=== PATIENT | male | born 1990 | race Caucasian/White ===

== ENCOUNTER 2020-07-16 16:21 | Emergency (ER) | payer MEDICAID, SELFPAY ==
--- NOTE | 2020-07-16 17:53 | HMH.EDUTC ---
[facility] [place] Disposition Clinical Impression: Viral syndrome, Bronchitis Disposition: Home, Self-Care Condition on Discharge: Good Instructions: Acute Bronchitis, DI for Acute Bronchitis, Preventing the Spread of Coronavirus Discharge Instructions Additional Instructions: Drink plenty of fluids. Take tylenol or ibuprofen for pain or fever. Take the medications as directed. Follow up with your regular doctor. GO TO THE ER FOR ANY WORSENING SYMPTOMS FOLLOW THE DIRECTIONS ON THE COVID-19 HAND OUT THAT WE GAVE YOU REGARDING SELF-ISOLATION UNTIL YOU KNOW YOUR COVID-19 RESULTS Prescriptions: Brompheniramine/Pseudoephed/Dm [Bromfed Dm Cough Syrup] 5 ml PO Q6HP PRN #240 syrup PRN Reason: Cough Transmission Status: Received by [facility] Azithromycin [Z-Ernesto 250mg Tab*] 250 mg PO UD DOSE PK #6 tab Transmission Status: Received by [facility] Referrals: PCP,No [Primary Care Provider] - Forms: Work/School Release Time of Disposition: 18:15 Medical Decision Making - Medical Records Medical records reviewed: No: I reviewed the patient's medical records. - Kan Inquiry Pt receiving controlled substance: No Vital Signs: 07/16/20 17:58 07/16/20 18:22 Temperature 98.6 F 98.6 F Temperature Source Oral Pulse Rate 72 Pulse Rate [Right Brachial] 72 Respiratory Rate 20 20 Blood Pressure 141/94 H Blood Pressure [Right Arm] 141/94 H Blood Pressure Mean [Right Arm] 109 Blood Pressure Source [Right Arm] Automatic Cuff Blood Pressure Position [Right Arm] Sitting 02 Sat by Pulse Oximetry 97 Oxygen Delivery Method Room Air - Lab Data Lab results reviewed: Yes: I reviewed the patient's lab results. [facility] [place] HPI - General Stated complaint: covid symptoms Time Seen by Provider: 07/16/20 17:53 - History of Present Illness Provider Complaint: He c/o 3 days of chest congestion, cough and feeling bad. He denies any known exposure to COVID-19. - Related Data Previous Rx's Medication Instructions Recorded Azithromycin [Z-Ernesto 250mg Tab*] 250 mg PO UD DOSE PK #6 tab 01/31/20 Brompheniramine/Pseudoephed/Dm 5 ml PO Q6HP PRN #240 syrup 01/31/20 [Bromfed Dm Cough Syrup] predniSONE [Deltasone 10mg tablet] 10 mg PO BID 3 Days #6 tab 01/31/20 Azithromycin [Z-Ernesto 250mg Tab*] 250 mg PO UD DOSE PK #6 tab 07/16/20 Brompheniramine/Pseudoephed/Dm 5 ml PO Q6HP PRN #240 syrup 07/16/20 [Bromfed Dm Cough Syrup] Allergies Allergy/AdvReac Type Severity Reaction Status Date / Time No Known Allergies Allergy Verified 02/06/19 18:16 [facility] History - Hepatitis A Screen Attestation statement:: This patient has been screened for Hepatitis A risk factors. I have reviewed the patient's past medical history: Yes Medical History: Denies:: Cancer, Diabetes Mellitus Type 1, Diabetes Mellitus Type 2, Hypertension, MRSA Other Surgeries: Yes: No Previous Surgery Amputation: No Fractures: No - Social History Smoking Status: Current every day smoker Tobacco Type: cigarettes # Packs/Day (cigarettes): 1 Alcohol Intake: never Occupational Status: other ROS Obtained: No All systems reviewed & no additional complaints - Constitutional Constitutional: Reports chills, Reports fever(s), Reports poor appetite, Reports malaise - Eyes Eyes: Denies eye discharge - ENT Ears, Nose, Mouth, and Throat: Denies dizziness, Denies otalgia, Reports sore throat - Cardiovascular Cardiovascular: Denies chest pain - Respiratory Respiratory: Yes chest congestion, Yes cough Physical Exam - General General appearance: alert, in no apparent distress - Head Head exam: atraumatic, normocephalic, normal inspection - Eye Eye exam: Present: normal appearance, PERRL, EOMI - ENT ENT exam: Present: normal exam, normal oropharynx, mucous membranes moist, TM's normal bilaterally, normal external ear exam - Neck Neck exam: Present: normal inspection, full ROM, trachea midline. Absent: meningismus, l
[2020-07-16 17:58] VITALS: BP 141/94; PULSE 72; RESP 20; TEMP 37; O2SAT 97; BMI 37.3
[2020-07-16 18:22] VITALS: BP 141/94; PULSE 72; RESP 20; TEMP 37; O2SAT 97
== END 2020-07-16 18:23 | disposition home or self-care (01) ==
PROVIDERS: Emergency Provider Nurse Practitioner Family
DX: J20.9 Acute bronchitis, unspecified (principal); B34.9 Viral infection, unspecified; Z20.828 Contact with and (suspected) exposure to other viral communicable diseases; F17.210 Nicotine dependence, cigarettes, uncomplicated
CPT/HCPCS: 99201; U0003

== ENCOUNTER 2020-08-29 07:56 | Emergency (ER) | payer MEDICAID, SELFPAY ==
[2020-08-29 08:05] VITALS: BP 135/76; PULSE 95; RESP 18; TEMP 37; O2SAT 98; BMI 39.4
--- NOTE | 2020-08-29 08:13 | XR_ITS ---
PROCEDURE: XR CHEST PORTABLE CLINICAL HISTORY: dizziness COMPARISON: CR CXR CHEST(2 VIEWS-NOT PORTABLE) from 02/04/2016 CR CXR CHEST(2 VIEWS-NOT PORTABLE) from 08/22/2016 CR CXR CHEST(2 VIEWS-NOT PORTABLE) from 11/05/2017 FINDINGS: The cardiomediastinal silhouette and pulmonary vascularity are within normal limits. The lungs are clear without infiltrates, suspicious nodules, or pleural effusions. No acute bony abnormalities. IMPRESSION: No acute findings. Dictated by: Dr. Juan Lama MD 08/29/2020 08:42 Dr. Juan Lama MD in [place] 08/29/2020 08:42
--- NOTE | 2020-08-29 08:16 | ECG_ITS ---
APPROVED REPORT Exam: Resting ECG HR:101 bpm ECG Measurements Heart Rate 101 AXES WV 156 P 47 QRSd 76 QRS 17 QT 340 T 35 QTc 440 <Conclusion> Sinus tachycardia Otherwise normal ECG Electronically signed by : Colton Marr, 08/29/2020 16:33:09
[2020-08-29 08:17] VITALS: BP 113/71; BP 127/79; BP 132/82; PULSE 82; PULSE 86; PULSE 94
--- NOTE | 2020-08-29 08:18 | HMH.EDDIZZ ---
ED Disposition Clinical Impression: Dehydration, mild, Dizziness, nonspecific Disposition: Home, Self-Care Condition on Discharge: Good Additional Instructions: Follow up with primary care today as discussed for stress management and return to the ED for any new or worsening symptoms. Referrals: PCP,No [Primary Care Provider] - - Critical Care Critical Care Time: No Attestation: On , the high probability of a clinically significant, sudden or life threatening deterioration of the following system(s) required my full and direct attention, intervention and personal management. The time I documented below is in addition to time spent performing reported procedures but includes the following listed in this critical care notation. Medical Decision Making - Kan Inquiry Pt receiving controlled substance: No Kan was queried for this patient: No Vital Signs: 08/29/20 08:05 08/29/20 08:17 Temperature 98.6 F Temperature Source Oral Pulse Rate [Orthostatic Lying Left Radial] 86 Pulse Rate [Orthostatic Sitting Left Radial] 82 Pulse Rate [Orthostatic Standing Left Radial] 94 H Pulse Rate [Radial] 95 H Respiratory Rate 18 Blood Pressure [Orthostatic Lying Left Arm] 113/71 Blood Pressure [Orthostatic Sitting Left Arm] 132/82 Blood Pressure [Orthostatic Standing Left Arm] 127/79 Blood Pressure [Right Arm] 135/76 Blood Pressure Mean [Right Arm] 95 Blood Pressure Position [Right Arm] Sitting 02 Sat by Pulse Oximetry 98 Oxygen Delivery Method Room Air - Lab Data Lab Results 08/29/20 08:28: WBC 10.6, RBC 5.23, Hgb 16.9, Hct 48.5, MCV 92.7, MCH 32.3 H, MCHC 34.8, RDW 12.9, Plt Count 336, MPV 8.3, Neut % (Auto) 64.2, Lymph % (Auto) 27.8, [place] % (Auto) 5.3, Eos % (Auto) 2.1, Baso % (Auto) 0.7, Neut # (Auto) 6.8, Lymph # (Auto) 3.0, [place] # (Auto) 0.6, Eos # (Auto) 0.2, Baso # (Auto) 0.1 08/29/20 08:28: Sodium 140, Potassium 4.6, Chloride 103, Carbon Dioxide 28, Anion Gap 13.6, BUN 10, Creatinine 0.70, Estimated Creat Clear 277, Estimated GFR 134, Est GFR ( Amer) 162, Glucose 111 H, Calcium 10.0, Total Bilirubin 0.6, AST 34, ALT 46, Alkaline Phosphatase 72, Total Protein 7.8, Albumin 4.7, Globulin 3.1, Albumin/Globulin Ratio 1.5 08/29/20 08:28: D-Dimer 0.34 Result diagrams: 08/29/20 08:28 08/29/20 08:28 Orders (Tests/Meds): ED MEDICATIONS Discontinued Medications Generic Name Dose Route Start Last Admin Trade Name Freq PRN Reason Stop Dose Admin Sodium Chloride 1,000 mls @ 999 mls/hr 08/29/20 08:30 08/29/20 08:22 Sod Chlor 0.9% 1000ml Bag IV 08/29/20 09:30 999 mls/hr .Q1H1M ONIEL Administration Ondansetron HCl 4 mg 08/29/20 08:14 08/29/20 08:23 Ondansetron 4mg Odt SL 08/29/20 08:15 Not Given ONCE ONE Ondansetron HCl 4 mg 08/29/20 08:23 08/29/20 08:24 Ondansetron 4mg/2ml Vial IV 08/29/20 08:24 4 mg ONCE ONE Administration ORDERS Category Date Time Status ECG Request by /Ivan Stat Y 08/29/20 08:14 Ordered - Radiology Data #1 Image Reviewed: Yes I reviewed the patient's radiology results, Yes I reviewed the patient's radiology image Preliminary Findings: Normal/NAD, No Infiltrates Seen, Normal Lung Inflation Martin, Normal Heart Size - ECG Data Tracing #1 Mild sinus tachycardia with a rate of 101 sinus normal axis, T wave inversion in lead III otherwise no other abnormalities with no ST segment changes. No evidence of other acute arrhythmia. ECG initial impression date: 08/29/20 ECG initial impression time: 08:36 Arrhythmias present: sinus tach Ischemic changes: t wave inversions (lead 3) - Reevaluation(s) Time: 09:45 Reevaluation #1: Patient was reevaluated with hemodynamically stable vital signs no longer tachycardic stating that he feels better after the IV fluid bolus. Patient also stated he had a primary care visit for later today to discuss stress management and to be reevaluated. Patient was amenable to plan of care d
[2020-08-29 08:38] LABS: Basophils # 0.1 K/mm3 (0-0.2); Basophils % 0.7 % (0.1-2.0); Eosinophils # 0.2 K/mm3 (0.0-0.4); Eosinophils % 2.1 % (0.1-12.0); Hematocrit 48.5 % (42.0-52.0); Hemoglobin 16.9 g/dL (14.1-18.0); Lymphocytes % 27.8 % (10-50); Mean Corpuscular HGB Conc 34.8 g/dL (31.8-35.4); Mean Corpuscular Hemoglobin 32.3 pg (27.0-31.2); Mean Corpuscular Volume 92.7 fl (80-94); Mean Platelet Volume 8.3 fl (7.4-10.4); Monocytes # 0.6 K/mm3 (0.1-1.0); Monocytes % 5.3 % (1.7-9.3); Neutrophils # 6.8 K/mm3 (1.8-7.8); Neutrophils % 64.2 % (37.0-80.0); Platelet Count 336 K/mm3 (142-424); Red Blood Count 5.23 M/mm3 (4.60-6.20); Red Cell Distribution Width 12.9 % (11.5-17.5); White Blood Count 10.6 K/mm3 (4.8-10.8)
[2020-08-29 08:43] LABS: Chloride 103 mmol/L (98-107); Potassium 4.6 mmoL/L (3.5-5.1); Sodium 140 mmol/L (136-145)
[2020-08-29 08:46] LABS: Alanine Aminotransferase 46 U/L (12-78); Albumin Level 4.7 g/dl (3.5-5.0); Albumin/Globulin Ratio 1.5 (1.1-1.8); Alkaline Phosphatase 72 U/L (38-126); Anion Gap 13.6 mEq/L (5-15); Aspartate Amino Transferase 34 U/L (17-59); Bilirubin,Total 0.6 mg/dl (0.2-1.3); Blood Urea Nitrogen 10 mg/dl (9-20); Carbon Dioxide 28 mmol/L (22.0-30.0); Creatinine Clearance Estimated 277 mL/min (50-200); Estimated Glomerular Filt Rate 134 ml/min (>60); GFR (African American) 162 ML/MIN (>60); Globulin 3.1 g/dL (1.3-3.2); Glucose 111 mg/dl (74-100); Total Protein,Serum 7.8 g/dl (6.3-8.2)
[2020-08-29 08:52] LABS: D-Dimer 0.34 ug/mL (0.15-8.0)
[2020-08-29 09:57] VITALS: BP 116/70; PULSE 85; RESP 20; O2SAT 100
[2020-08-29 10:29] VITALS: BP 126/61; PULSE 75; RESP 18; TEMP 36.7; O2SAT 99
[2020-08-29 22:13] LABS: POC Glucose,Bedside 97 (70-110)
== END 2020-08-29 10:41 | disposition home or self-care (01) ==
PROVIDERS: Emergency Provider Student in an Organized Health Care Education/Training Program
DX: E86.0 Dehydration (principal); R42 Dizziness and giddiness; F17.210 Nicotine dependence, cigarettes, uncomplicated
CPT/HCPCS: 71045; 80053; 82962; 85025; 85378; 93005; 96365; 96375; 99283; J2405

== ENCOUNTER 2020-10-09 12:00 | Emergency (ER) | payer MEDICAID, SELFPAY ==
[2020-10-09 12:35] VITALS: BP 153/78; PULSE 87; RESP 20; TEMP 36.7; O2SAT 100; BMI 39.4
--- NOTE | 2020-10-09 12:58 | XR_ITS ---
PROCEDURE: XR THORACIC SPINE 3V CLINICAL INDICATION: PAIN Mid back pain COMPARISON: No exams were available for comparison FINDINGS: No fracture or dislocation. No lytic or blastic change. There is normal mineralization. The joint spaces are well-preserved. No significant degenerative/arthritic changes. No erosive changes evident. Other findings:There is minimal upper thoracic curvature convex left. This could be due to positioning or mild scoliosis. IMPRESSION: Minimal upper thoracic curvature convex left otherwise negative Dictated by: Jacobo Payne MD 10/09/2020 13:52 Jacobo Payne MD in [place] 10/09/2020 13:52
--- NOTE | 2020-10-09 13:01 | HMH.EDUTC ---
[facility] [place] Disposition Clinical Impression: Thoracic back pain Qualifiers: Chronicity: acute Back pain laterality: bilateral Qualified Code(s): M54.6 - Pain in thoracic spine Otitis media Qualifiers: Otitis media type: suppurative Chronicity: acute Laterality: bilateral Recurrence: non-recurrent Spontaneous tympanic membrane rupture: without spontaneous rupture Qualified Code(s): H66.003 - Acute suppurative otitis media without spontaneous rupture of ear drum, bilateral Disposition: Home, Self-Care Condition on Discharge: Good Instructions: Middle Ear Infection, DI for Thoracic Back Pain, Thoracic Back Pain Additional Instructions: No heavy lifting. No twisting. Take the oral medications as directed. The muscle relaxer (robaxin) will make you drowsy, so don't drive or operate heavy machinery after taking it. Follow up with your regular doctor. GO TO THE ER FOR ANY WORSENING SYMPTOMS OR CONCERN Prescriptions: methylPREDNISolone [Medrol] 4 mg PO DIRECTED 6 Days #21 tab.ds.pk Transmission Status: Received by [facility] Methocarbamol [Robaxin 500mg Tab] 500 mg PO BIDP PRN #30 tab PRN Reason: Muscle Spasm Transmission Status: Received by [facility] Azithromycin [Z-Ernesto 250mg Tab*] 250 mg PO UD DOSE PK #6 tab Transmission Status: Received by [facility] Referrals: Nate Rust APRN [Primary Care Provider] - Forms: Work/School Release Time of Disposition: 13:36 Medical Decision Making - Medical Records Medical records reviewed: No: I reviewed the patient's medical records. - Kan Inquiry Pt receiving controlled substance: No Vital Signs: 10/09/20 12:35 10/09/20 13:36 Temperature 98.0 F 98.0 F Temperature Source Oral Pulse Rate 87 Pulse Rate [Right Brachial] 87 Respiratory Rate 20 20 Blood Pressure 153/78 H Blood Pressure [Right Arm] 153/78 H Blood Pressure Mean [Right Arm] 103 Blood Pressure Source [Right Arm] Automatic Cuff Blood Pressure Position [Right Arm] Sitting 02 Sat by Pulse Oximetry 100 Oxygen Delivery Method Room Air - Radiology Data #1 Image(s): T-Spine Image Reviewed: Yes I reviewed the patient's radiology image, Yes I have reviewed radiologist's interpretation Preliminary Findings: Normal/NAD PROCEDURE: XR THORACIC SPINE 3V CLINICAL INDICATION: PAIN Mid back pain COMPARISON: No exams were available for comparison FINDINGS: No fracture or dislocation. No lytic or blastic change. There is normal mineralization. The joint spaces are well-preserved. No significant degenerative/arthritic changes. No erosive changes evident. Other findings:There is minimal upper thoracic curvature convex left. This could be due to positioning or mild scoliosis. IMPRESSION: Minimal upper thoracic curvature convex left otherwise negative Dictated by: Jacobo Payne MD 10/09/2020 13:52 Jacobo Payne MD in [place] 10/09/2020 13:52 [facility] [place] HPI - General Stated complaint: Back pain Time Seen by Provider: 10/09/20 13:02 Mode of Arrival: Ambulatory Source of Information: Patient Limitations: No Limitations Description of Symptoms (Recalled from Triage Doc. by RN): PATIENT C/O MID BACK PAIN THAT RADIATES THROUGH NECK WITH ASSOCIATED DIZZINESS ON AND OFF X 2 WEEKS. NO KNOWN INJURY. PATIENT DOES HAVE A FAMILY HISTORY OF DDD. HE WAS ALSO SEEN IN THE ER APPROX 1 MONTH AGO FOR DIZZINESS HEENT Symptoms (Recalled from RN notes): No Resp Symptoms (Recalled from RN notes): No Skin Symptoms (Recalled from RN notes): No MS Symptoms (Recalled from RN notes): Yes Functional Status (Recalled from RN notes): WNL - History of Present Illness Provider Complaint: He states that for the past 3 weeks he has had intermitent upper back pain. He has also had some periods of dizziness and bilateral ear pain. - Related Data Previous Rx's Medication Instructions Recorded Azithromycin [Z-Ernesto 250mg Tab*] 250 mg PO UD DOSE PK #6 tab 10/09/20 Methocarbamol [
[2020-10-09 13:36] VITALS: BP 153/78; PULSE 87; RESP 20; TEMP 36.7; O2SAT 100
== END 2020-10-09 13:40 | disposition home or self-care (01) ==
PROVIDERS: Emergency Provider Nurse Practitioner Family; PCP Nurse Practitioner Family
DX: M54.6 Pain in thoracic spine (principal); H66.003 Acute suppurative otitis media without spontaneous rupture of ear drum, bilateral
CPT/HCPCS: 72072; 99201

== ENCOUNTER 2021-03-25 11:00 | Emergency (ER) | payer BC, MEDICAID, SELFPAY ==
[2021-03-25 11:05] VITALS: BP 130/84; PULSE 90; RESP 20; TEMP 37.2; O2SAT 98; BMI 38.3
[2021-03-25 11:19] VITALS: BP 130/84; PULSE 90; RESP 20; TEMP 37.2; O2SAT 98
--- NOTE | 2021-03-25 11:19 | HMH.EDUTC ---
[place] Disposition Clinical Impression: Right foot pain, Right ankle tendonitis Right ankle pain Qualifiers: Chronicity: acute Qualified Code(s): M25.571 - Pain in right ankle and joints of right foot Otitis media Qualifiers: Otitis media type: suppurative Chronicity: acute Laterality: right Recurrence: non-recurrent Spontaneous tympanic membrane rupture: without spontaneous rupture Qualified Code(s): H66.001 - Acute suppurative otitis media without spontaneous rupture of ear drum, right ear Disposition: Home, Self-Care Condition on Discharge: Good Instructions: DI for Tendinitis, DI for Ankle Pain Additional Instructions: Rest the extremity, apply ice for 15 minutes as tolerated three or four times per day, Wear the carlos wrap for compression, Elevate the extremity as tolerated while you are resting. Take ibuprofen for pain. I sent in a prescription to your pharmacy. Follow up with Dr. Shanks (orthopedics). I put in a referral but you need to call his office and schedule an appointment. Follow up with your regular doctor. GO TO THE ER FOR ANY WORSENING SYMPTOMS Prescriptions: Ibuprofen [Ibuprofen 800mg Tablet] 800 mg PO Q8HP PRN #30 tab PRN Reason: Moderate Pain Transmission Status: Received by [facility] Amoxicillin [Amoxicillin 500mg Tab] 500 mg PO TID 10 Days #30 tab Transmission Status: Received by [facility] predniSONE [Deltasone 10mg tablet] 10 mg PO BID 3 Days #6 tab Transmission Status: Received by [facility] Fluticasone Propionate [Flonase 50mcg nasal spray 16gm] 1 spr NS BID 30 Days #1 bottle Transmission Status: Received by [facility] Referrals: Jewel Araiza MD [Primary Care Provider] - Forms: Work/School Release Time of Disposition: 12:11 Medical Decision Making - Kan Inquiry Pt receiving controlled substance: No Vital Signs: 03/25/21 11:05 03/25/21 11:19 Temperature 98.9 F 98.9 F Temperature Source Oral Oral Pulse Rate 90 Pulse Rate [Left] 90 Respiratory Rate 20 20 Blood Pressure 130/84 Blood Pressure [Right Arm] 130/84 Blood Pressure Mean [Right Arm] 99 Blood Pressure Source Automatic Cuff Blood Pressure Source [Right Arm] Automatic Cuff Blood Pressure Position Sitting Blood Pressure Position [Right Arm] Sitting 02 Sat by Pulse Oximetry 98 Oxygen Delivery Method Room Air Room Air - Radiology Data #1 Image(s): Ankle Image Reviewed: Yes I reviewed the patient's radiology image, Yes I have reviewed radiologist's interpretation Preliminary Findings: Normal/NAD, No Fracture Seen PROCEDURE: XR ANKLE RT MIN 3V CLINICAL INDICATION: right ankle pain, no injury COMPARISON: No exams were available for comparison FINDINGS: No fracture or dislocation. No lytic or blastic change. There is normal mineralization. The joint spaces are well-preserved. No significant degenerative/arthritic changes. No erosive changes evident. Other findings:None. IMPRESSION: No acute findings. Dictated by: Jacobo Payne MD 03/25/2021 11:49 Jacobo Payne MD in [place] 03/25/2021 11:49 [place] HPI - General Stated complaint: right leg pain, below knee, no accident Time Seen by Provider: 03/25/21 11:24 Mode of Arrival: Ambulatory Source of Information: Patient Limitations: No Limitations Description of Symptoms (Recalled from Triage Doc. by RN): Right lower leg and chronic mid back pain. Dizzy spells HEENT Symptoms (Recalled from RN notes): No Resp Symptoms (Recalled from RN notes): No Skin Symptoms (Recalled from RN notes): No MS Symptoms (Recalled from RN notes): Yes Functional Status (Recalled from RN notes): wnl - History of Present Illness Provider Complaint: He state that he has had right ankle pain for the past 3 days. He denies any injury. He states that certain movements makes the pain worse. - Related Data Previous Rx's Medication Instructions Recorded Azithromycin [Z-Ernesto 250mg Tab*] 250
--- NOTE | 2021-03-25 11:24 | XR_ITS ---
PROCEDURE: XR ANKLE RT MIN 3V CLINICAL INDICATION: right ankle pain, no injury COMPARISON: No exams were available for comparison FINDINGS: No fracture or dislocation. No lytic or blastic change. There is normal mineralization. The joint spaces are well-preserved. No significant degenerative/arthritic changes. No erosive changes evident. Other findings:None. IMPRESSION: No acute findings. Dictated by: Jacobo Payne MD 03/25/2021 11:49 Jacobo Payne MD in [place] 03/25/2021 11:49
== END 2021-03-25 12:20 | disposition home or self-care (01) ==
PROVIDERS: Emergency Provider Nurse Practitioner Family; PCP Emergency Medicine
DX: M79.671 Pain in right foot (principal); M77.51 Other enthesopathy of right foot and ankle; F17.210 Nicotine dependence, cigarettes, uncomplicated
CPT/HCPCS: 73610; 99202; G0463

== ENCOUNTER 2021-03-27 10:17 | Emergency (ER) | payer BC, MEDICAID, SELFPAY ==
[2021-03-27 10:17] VITALS: BP 141/98; PULSE 97; RESP 20; TEMP 36.7; O2SAT 98; BMI 38.3
--- NOTE | 2021-03-27 10:33 | XR_ITS ---
PROCEDURE: XR TIBIA FIBULA RT 2V CLINICAL INDICATION: pain in right lower extremity COMPARISON: No exams were available for comparison FINDINGS: No fracture or dislocation. No lytic or blastic change. There is normal mineralization. The joint spaces are well-preserved. No significant degenerative/arthritic changes. No erosive changes evident. Other findings:None. IMPRESSION: No acute findings. Dictated by: Jacobo Payne MD 03/27/2021 11:46 Jacobo Payne MD in [place] 03/27/2021 11:46
[2021-03-27 10:40] VITALS: BP 149/91; PULSE 79; O2SAT 97
--- NOTE | 2021-03-27 10:46 | HMH.EDGENADL ---
ED Disposition Clinical Impression: Tendinitis of right ankle Disposition: Home, Self-Care Condition on Discharge: Good Additional Instructions: See Dr. Sandoval on March 31 as scheduled. Off work until seen by Dr. Sandoval. Orthopedic boot. Ice to ankle 20 minutes 4 times a day. Continue ibuprofen and prednisone. Referrals: Adriana Sandoval DPM [Staff Physician] - - Critical Care Critical Care Time: No Attestation: On , the high probability of a clinically significant, sudden or life threatening deterioration of the following system(s) required my full and direct attention, intervention and personal management. The time I documented below is in addition to time spent performing reported procedures but includes the following listed in this critical care notation. Medical Decision Making - Kan Inquiry Pt receiving controlled substance: No Vital Signs: 03/27/21 10:17 03/27/21 10:40 03/27/21 11:01 Temperature 98.0 F Temperature Source Oral Pulse Rate 79 91 H Pulse Rate [Right Radial] 97 H Respiratory Rate 20 Blood Pressure 149/91 H 136/84 Blood Pressure [Right Arm] 141/98 H Blood Pressure Mean 110 101 Blood Pressure Mean [Right Arm] 112 02 Sat by Pulse Oximetry 98 97 97 Oxygen Delivery Method Room Air 03/27/21 11:31 Temperature Temperature Source Pulse Rate 91 H Pulse Rate [Right Radial] Respiratory Rate Blood Pressure 160/82 H Blood Pressure [Right Arm] Blood Pressure Mean 108 Blood Pressure Mean [Right Arm] 02 Sat by Pulse Oximetry 97 Oxygen Delivery Method - Radiology Data #1 Image(s): Tib/Fib Image Reviewed: Yes I reviewed the patient's radiology image, Yes I have reviewed radiologist's interpretation PROCEDURE: XR TIBIA FIBULA RT 2V CLINICAL INDICATION: pain in right lower extremity COMPARISON: No exams were available for comparison FINDINGS: No fracture or dislocation. No lytic or blastic change. There is normal mineralization. The joint spaces are well-preserved. No significant degenerative/arthritic changes. No erosive changes evident. Other findings:None. IMPRESSION: No acute findings. Dictated by: Jacobo Payne MD 03/27/2021 11:46 Jacobo Payne MD in [place] 03/27/2021 11:46 - Physician Consults Physician Consulted: Dimitris Time: 11:20 Reason -: Orthopedic Eval/Care Comment/Response: Recommends the patient be referred to Dr. Sandoval Additional Consult: Jaime Medical Decision Narrative: Crutches ordered, patient refuses crutches. General Adult HPI - General Chief complaint: PAIN Stated complaint: Rt ankle pain Time Seen by Provider: 03/27/21 10:46 Mode of Arrival: Ambulatory Limitations: Physical Limitations Description of Symptoms (Recalled from ER Triage Doc. by RN): Pt presents with right lower extremity & ankle pain, stated he was seen in the [facility] last Tuesday with right ankle pain. States he woke up with this pain last Tuesday and the pain has gradually increased. Pt denies any falls//trauma. - History of Present Illness HPI narrative: For several days he has had pain in his anterior right ankle and anterior right lower leg. No injury or trauma. No unusual activity. States that he can feel tissue tearing when he puts his hand over his anterior right ankle and dorsiflexes and plantar flexes the ankle. He is describing tendinitis crepitus. He was seen in the urgent treatment center here 2 days ago for the same symptoms. He had a negative ankle x-ray. He was prescribed ibuprofen and prednisone and placed in an Johnny wrap. He was taken off of work for 2 days and return to work today, but is unable to work. He says he has not improved. He does not have pain at rest, but has pain with weightbearing and movement. He was referred to Dr. Shanks for orthopedic follow-up. He called their office today to make an appointment, but he when he received a return call he was already on the way to the emergency department. -
[2021-03-27 11:01] VITALS: BP 136/84; PULSE 91; O2SAT 97
[2021-03-27 11:31] VITALS: BP 160/82; PULSE 91; O2SAT 97
[2021-03-27 12:13] VITALS: BP 121/82; PULSE 71; RESP 18; TEMP 36.7; O2SAT 97
== END 2021-03-27 12:17 | disposition home or self-care (01) ==
PROVIDERS: Emergency Provider Emergency Medicine; PCP Emergency Medicine
DX: M77.51 Other enthesopathy of right foot and ankle (principal); F17.210 Nicotine dependence, cigarettes, uncomplicated
CPT/HCPCS: 73590; 99282

== ENCOUNTER 2021-07-09 17:48 | Emergency (ER) | payer BC, MEDICAID, SELFPAY ==
[2021-07-09 17:50] VITALS: BP 129/85; PULSE 116; RESP 19; TEMP 37.8; O2SAT 98; BMI 36.9
--- NOTE | 2021-07-09 18:56 | HMH.EDUTC ---
[facility] [place] Disposition Clinical Impression: Exposure to COVID-19 virus Disposition: Home, Self-Care Condition on Discharge: Good Instructions: Cough, DI for Cough -- Adult, DI for COVID-19 (Suspected or Confirmed ), Coronavirus Disease 2019, Preventing the Spread of Coronavirus Discharge Instructions Additional Instructions: *Monitor Temp, Over the counter Motrin or Tylenol as directed/as needed Tylenol every 4 hours and Motrin every 6 hours (as long as your family doctor has told you that you can take it) for fever or pain. and straight to ER if unable to lower temp less than 101.0 after medication given *Warm salt water gargles may help to soothe the throat *Throat Lozenges *Warm fluids like tea with honey may help to soothe the throat *Sleep elevated *Humidifier/Vaporizer Your throat swab was sent for culture. Those results are typically sent to your primary care. Be sure to follow up in 2-3 days with your family doctor/primary care physician if no improvement so they can review those result and treat if necessary. If you don?t have a primary care doctor, I recommend you get one but in the mean time, you will have to return to a walk in clinic Follow up IMMEDIATELY for new or worsening symptoms or no Noticeable improvement over the next 48-72 hours. 911 for difficulty breathing or swallowing You were tested for today for COVID19 your test result should be back in the next 24-48 hours, you may call to the [facility] to see if your test results are back in the next 48 hours [phone] [facility] hours are 9am-9pm You was given a handout with instructions for Self Quarantine and Self isolation for while you wait on test results and what to do if they are positive If you are positive the Health Dept will be contacting you also Make sure to take your Vitamins Vit. C Vit D and Zinc if you can take them Prescriptions: guaiFENesin [Mucinex 600mg tablet] 1 - 2 tab PO Q12HP PRN #20 tab.er.12h PRN Reason: Congestion Transmission Status: Received by [facility] Referrals: Jewel Araiza MD [Primary Care Provider] - As needed Forms: Work/School Release Time of Disposition: 19:09 Medical Decision Making - Kan Inquiry Pt receiving controlled substance: No Kan was queried for this patient: No Vital Signs: 07/09/21 17:50 Temperature 100.0 F H Temperature Source Oral Pulse Rate [Left Radial] 116 H Respiratory Rate 19 Blood Pressure [Right Arm] 129/85 Blood Pressure Mean [Right Arm] 99 Blood Pressure Source [Right Arm] Automatic Cuff Blood Pressure Position [Right Arm] Sitting 02 Sat by Pulse Oximetry 98 Oxygen Delivery Method Room Air - Lab Data Lab results reviewed: Yes: I reviewed the patient's lab results. Lab Results 07/09/21 19:02: Strep Scn Rapid Clinic Negative Orders (Tests/Meds): ORDERS Category Date Time Status Covid-19 Nasal PCR ([facility]) Routine Lab 07/09/21 18:26 Received Strep Screen Confirmation Stat Micro 07/09/21 19:02 Received [facility] UTC HPI - General Stated complaint: coviid test, with symptoms Time Seen by Provider: 07/09/21 18:57 Mode of Arrival: Ambulatory Source of Information: Patient Limitations: No Limitations Description of Symptoms (Recalled from Triage Doc. by RN): cough started today, covid test HEENT Symptoms (Recalled from RN notes): Yes Resp Symptoms (Recalled from RN notes): No Skin Symptoms (Recalled from RN notes): No MS Symptoms (Recalled from RN notes): No Functional Status (Recalled from RN notes): na - History of Present Illness Provider Complaint: Patient states that he was around his mother over the weekend that has since tested positive for COVID States that today he has been having scratchy throat nasal congestion and cough along with fever on and off so he come in to get tested for COVID - Related Data Previous Rx's Medication Instructions Recorded diclofenac sodium 1 % topical gel 4 g TOPICAL QID PRN #100 g 03/31/21 meloxicam 7.5 mg tablet 7.5 mg P
[2021-07-09 19:05] LABS: UTC Strep Screen (Rapid) Negative (Negative)
[2021-07-09 19:28] VITALS: BP 129/85; PULSE 116; RESP 19; TEMP 37.8; O2SAT 98
== END 2021-07-09 19:29 | disposition home or self-care (01) ==
PROVIDERS: Emergency Provider Nurse Practitioner; PCP Emergency Medicine
DX: Z20.822 Contact with and (suspected) exposure to COVID-19 (principal); F17.210 Nicotine dependence, cigarettes, uncomplicated
CPT/HCPCS: 87880; 99202; G0463; U0003

== ENCOUNTER 2021-07-26 14:26 | Emergency (ER) | payer BC, MEDICAID, SELFPAY ==
[2021-07-26 17:51] VITALS: BP 0/0; PULSE 0; RESP 0; TEMP -17.7; TEMP 0
== END 2021-07-26 17:52 | disposition left against medical advice (07) ==
PROVIDERS: Emergency Provider Physician Assistant; PCP Emergency Medicine
DX: Z53.21 Procedure and treatment not carried out due to patient leaving prior to being seen by health care provider (principal)

== ENCOUNTER 2021-08-07 15:12 | Outpatient (RCR) | payer BC, MEDICAID, SELFPAY | END 2021-08-07 16:14 | disposition home or self-care (01) | LOC: PT 15:12 | PROVIDERS: Visit Provider Orthopaedic Surgery | DX: S83.207A Unspecified tear of unspecified meniscus, current injury, left knee, initial encounter (principal); S83.512A Sprain of anterior cruciate ligament of left knee, initial encounter | CPT/HCPCS: 97760 ==

== ENCOUNTER → 2021-08-25 07:50 | Outpatient (CLI) | payer BC, MEDICAID, SELFPAY ==
--- NOTE | 2021-08-25 07:55 | MR_ITS ---
PROCEDURE INFORMATION: Exam: MR Left Lower Extremity Joint Without Contrast, Knee Exam date and time: 08/25/2021 7:55 AM Age: 30 years old Clinical indication: Pain and injury or trauma; Sprain or strain; Patella or knee; Left; Injury details: [id number] ago knee popped and hyperextended. Posterior knee pain. Knee instability. Prior x-ray 07-26-21; Additional info: Lt knee injury, [id number] ago knee popped and hyperextended. Posterior knee pain. Knee instability. Prior x-ray 07-26-21. TECHNIQUE: Imaging protocol: MR of the Left lower extremity joint without contrast. Exam focused on the knee. COMPARISON: DX KNEE 3V LT 07/26/2021 5:07 PM FINDINGS: Bones and cartilage: The tibia is anteriorly subluxed relative to the femur. Osseous contusions involve the medial and lateral tibial plateaus with the posterior aspect of the lateral tibial plateau most prominently involved. There is no focal cartilage damage. Joint spaces: A mild joint effusion involves the knee. Medial meniscus: A vertical longitudinal tear involves the medial meniscus posterior horn. Lateral meniscus: A horizontal tear involves the posterior horn of the lateral meniscus. The tear extends to the inferior meniscal surface. Anterior cruciate ligament: The anterior cruciate ligament appears discontinuous, consistent with a full-thickness tear. If any fibers remain intact, these would be unlikely to be structurally sound. Posterior cruciate ligament: The posterior cruciate ligament is intact. Medial capsule and supporting structures: The medial collateral ligament is intact. Lateral capsule and supporting structures: The lateral collateral ligament complex is intact. Extensor mechanism of knee: Mild tendinosis involves the proximal patellar tendon. Band-like variable signal involving the more distal patellar tendon on the sagittal sequence is likely due to magic angle artifact. The quadriceps tendon is intact with a normal striated appearance. Muscles: Unremarkable. Soft tissues: Unremarkable. IMPRESSION: 1. Full-thickness anterior cruciate ligament tear. 2. Longitudinal tear of the medial meniscus posterior horn. 3. Horizontal tear of the lateral meniscus posterior horn. 4. Tibial plateau osseous contusions without fracture.
== END ==
PROVIDERS: PCP Nurse Practitioner Family; Visit Provider Orthopaedic Surgery
DX: S83.207A Unspecified tear of unspecified meniscus, current injury, left knee, initial encounter (principal); S83.512A Sprain of anterior cruciate ligament of left knee, initial encounter
CPT/HCPCS: 73721

== ENCOUNTER 2021-09-02 15:43 | Outpatient (RCR) | payer BC, MEDICAID, SELFPAY ==
--- NOTE | 2021-09-02 17:36 | HMH.PTOPEV ---
PT Outpatient Evaluation Rehab PT Outpatient Evaluation Start: 09/02/21 15:59 Freq: Status: Active Protocol: Document 09/02/21 15:59 SUKHDEVRAUL (Rec: 09/02/21 17:35 SUKHDEVRAUL [id number]) Electronically Signed By Flavio Adams PT 09/02/21 15:59 Outpatient Therapy Subjective History Subjective History This is the intial evaluation for Jan Morel. Pt is a 30 y/ o male referred for a complete ACL tear and partically torn medial and lateral meniscus. Pt states this injury originally happened at work in 2012. Pt reports the injury was a partial tear of the ACL but due to no lack of functional limitations he was never operated on. He states this past June he was getting in his car when his R leg slipped, pushing his left knee too far inward reinjurying his L knee. Pt reports hearing a snap and pop . Imaging showed a full tear ACL and partial torn meniscus. Pt reports being off the knee since and off work since. Pt reports anytime he is walking he always wears a brace. Pt reports he feels tingling and instability in his L knee now that scares him to WB when his brace is not on. - note done by Carie Hutchison, SPT Chief Complaint Pain,Gives out/Unstable, Weakness Symptom Type Ache,Sharp,Tingling Symptoms Relieved By Rest/Positioning,Brace/Support Symptoms Aggravated By Standing,Physical Activity, Twisting,Walking Prior Functional Limitations None Current Functional Limitations Lifting,Housework,Standing, Squatting,Recreation Activity, Walking,Stairs Symptom Description Activity Dependent Level of pain today (0-10) 0 Pain scale - at its best (0-10) 0 Pain scale - at its worst (0-10) 0 Hip/Knee Eval Gait Observation General Gait Pattern Observation Antalgic Gait MMT left Hip Flexion Strength Grade 4 Good Hip Abduction Strength Grade 4- Good- Hip Adduction Strength Grade Not Te
== END 2021-09-02 15:45 | disposition home or self-care (01) ==
LOC: PT 15:43
PROVIDERS: PCP Nurse Practitioner Family; Visit Provider Orthopaedic Surgery
DX: S83.512D Sprain of anterior cruciate ligament of left knee, subsequent encounter (principal); S83.207D Unspecified tear of unspecified meniscus, current injury, left knee, subsequent encounter
CPT/HCPCS: 97110; 97163

== ENCOUNTER → 2021-09-14 11:10 | Outpatient (CLI) | payer BC, MEDICAID, SELFPAY | PROVIDERS: Visit Provider Nurse Practitioner | DX: Z20.822 Contact with and (suspected) exposure to COVID-19 (principal); U07.1 COVID-19 | CPT/HCPCS: C9803; U0003; U0005 ==

== ENCOUNTER → 2021-09-21 13:29 | Outpatient (CLI) | payer BC, MEDICAID, SELFPAY | PROVIDERS: Visit Provider Nurse Practitioner Family | DX: Z20.822 Contact with and (suspected) exposure to COVID-19 (principal); U07.1 COVID-19 | CPT/HCPCS: C9803; U0003; U0005 ==

== ENCOUNTER 2021-09-21 14:47 | Emergency (ER) | payer BC, MEDICAID, SELFPAY ==
[2021-09-21 15:30] VITALS: BP 135/88; PULSE 102; RESP 20; TEMP 37.7; O2SAT 97; BMI 39.4
--- NOTE | 2021-09-21 15:59 | HMH.EDUTC ---
[facility] [place] Clinical Impression: COVID-19, Viral syndrome Disposition: Home, Self-Care Condition on Discharge: Good Instructions: DI for COVID-19 (Suspected or Confirmed ), Preventing the Spread of Coronavirus Discharge Instructions Additional Instructions: Drink plenty of fluids. Take tylenol or ibuprofen for pain or fever. Take the medications as directed. Follow up with your regular doctor. GO TO THE ER FOR ANY WORSENING SYMPTOMS Prescriptions: Albuterol Sulfate [Albuterol Sulfate Hfa] 2 puffs IH Q6HP PRN 30 Days #1 each PRN Reason: Shortness Of Breath Transmission Status: Received by [facility] dexAMETHasone [Decadron] 6 mg PO DAILY 6 Days #6 tab Transmission Status: Received by [facility] Azithromycin [Z-Ernesto 250mg Tab*] 250 mg PO UD DOSE PK #6 tab Transmission Status: Received by [facility] Referrals: Nate Rust APRN [Primary Care Provider] - Forms: Work/School Release Time of Disposition: 16:55 Medical Decision Making - Medical Records Medical records reviewed: No: I reviewed the patient's medical records. - Kan Inquiry Pt receiving controlled substance: No Vital Signs: 09/21/21 15:30 09/21/21 16:58 Temperature 99.9 F H 99.9 F H Temperature Source Oral Pulse Rate 102 H Pulse Rate [Left Brachial] 102 H Respiratory Rate 20 20 Blood Pressure 135/88 Blood Pressure [Left Arm] 135/88 Blood Pressure Mean [Left Arm] 103 Blood Pressure Source [Left Arm] Automatic Cuff Blood Pressure Position [Left Arm] Sitting 02 Sat by Pulse Oximetry 97 Oxygen Delivery Method Room Air [facility] [place] - General Stated complaint: covid postive, covid symtpoms Time Seen by Provider: 09/21/21 15:59 Mode of Arrival: Ambulatory Source of Information: Patient Limitations: No Limitations Description of Symptoms (Recalled from Triage Doc. by RN): PATIENT C/O FATIGUE, BODY ACHES, HEADACHE, SOA. TESTED POSITIVE FOR COVID ON 09/14. HE REPORTS THAT THE HEALTH DEPARTMENT WANTS TO RELEASE HIM TO WORK TOMORROW BUT PATIENT STATES HE IS NOT READY HEENT Symptoms (Recalled from RN notes): Yes Resp Symptoms (Recalled from RN notes): No Skin Symptoms (Recalled from RN notes): No MS Symptoms (Recalled from RN notes): No Functional Status (Recalled from RN notes): WNL - History of Present Illness Provider Complaint: He is here with continued c/o of cough, chest congestion and feeling bad. He has Covid-19. Tomorrow is his 10 day since being diagnosed, but he states that he his feeling worse instead of better. - Related Data Previous Rx's Medication Instructions Recorded prednisone 20 mg tablet 20 mg PO BID 5 Days #10 tab 09/15/21 Albuterol Sulfate [Albuterol 2 puffs IH Q6HP PRN 30 Days #1 each 09/21/21 Sulfate Hfa] Azithromycin [Z-Ernesto 250mg Tab*] 250 mg PO UD DOSE PK #6 tab 09/21/21 dexAMETHasone [Decadron] 6 mg PO DAILY 6 Days #6 tab 09/21/21 Allergies Allergy/AdvReac Type Severity Reaction Status Date / Time No Known Allergies Allergy Verified 08/28/21 10:14 - Worker's Comp Is this a Worker's Comp case?: No [facility] History - Hepatitis A Screen Drug use history?: No High risk sexual behaviors?: No History of sexually transmitted infection?: No Currently employed?: No Childcare worker?: No Do you have indoor plumbing?: Yes Do you have electricity?: Yes Attestation statement:: This patient has been screened for Hepatitis A risk factors. I have reviewed the patient's past medical history: Yes Medical History: Denies:: Cancer, Diabetes Mellitus Type 1, Diabetes Mellitus Type 2, Hypertension, MRSA Laterality Cases: Bilateral: Tonsillectomy Other Surgeries: Yes: No Previous Surgery Amputation: No Fractures: No Comment: I&D 2019 - Dr. Brown - Social History Smoking Status: Current every day smoker Tobacco Type: cigarettes # Packs/Day (cigarettes): 1 Alcohol Intake: current Alcohol Intake Frequency:: holidays/special occasions only Occupati
--- NOTE | 2021-09-21 16:04 | XR_ITS ---
PROCEDURE INFORMATION: Exam: XR Chest Exam date and time: 09/21/2021 4:04 PM Age: 31 years old Clinical indication: Cough; Additional info: Cough, congestion TECHNIQUE: Imaging protocol: XR of the chest. Views: 2 views. COMPARISON: CR XR CHEST PORTABLE 08/29/2020 8:36 AM FINDINGS: Lungs: Unremarkable. No consolidation. Pleural spaces: Unremarkable. No pleural effusion. No pneumothorax. Heart/Mediastinum: Unremarkable. No cardiomegaly. Bones/joints: Unremarkable. IMPRESSION: No acute findings.
[2021-09-21 16:58] VITALS: BP 135/88; PULSE 102; RESP 20; TEMP 37.7; O2SAT 97
== END 2021-09-21 17:15 | disposition home or self-care (01) ==
PROVIDERS: Emergency Provider Nurse Practitioner Family; PCP Nurse Practitioner Family
DX: U07.1 COVID-19 (principal); B34.9 Viral infection, unspecified; R06.02 Shortness of breath; R05.1 Acute cough
CPT/HCPCS: 71046; 99202; G0463

== ENCOUNTER 2021-09-23 07:49 | Outpatient (CLI) | payer BC, MEDICAID, SELFPAY ==
[2021-09-23] VITALS (8 sets, daily range): BP systolic 122–143; BP diastolic 83–96; PULSE 65–95; RESP 17; TEMP 36.8–36.9; O2SAT 93–97
== END 2021-09-23 10:35 | disposition home or self-care (01) ==
LOC: INF 07:50
PROVIDERS: PCP Nurse Practitioner Family; Visit Provider Nurse Practitioner Family
DX: U07.1 COVID-19 (principal); Z23 Encounter for immunization
CPT/HCPCS: 96365

== ENCOUNTER 2021-10-26 16:00 | Emergency (ER) | payer BC, MEDICAID, SELFPAY ==
[2021-10-26 16:47] LABS: UTC Strep Screen (Rapid) Positive (Negative)
[2021-10-26 16:59] VITALS: BP 146/74; PULSE 96; RESP 19; TEMP 36.9; O2SAT 98; BMI 39.4
--- NOTE | 2021-10-26 16:59 | HMH.EDUTC ---
[facility] [place] Clinical Impression: Strep throat Disposition: Home, Self-Care Condition on Discharge: Good Instructions: Strep Throat, DI for Strep Throat Additional Instructions: Drink plenty of fluids. Take tylenol or ibuprofen for pain or fever. Take the medications as directed. Follow up with your regular doctor. GO TO THE ER FOR ANY WORSENING SYMPTOMS Throw your tooth brush away and get a new one. Prescriptions: Promethazine/Dextromethorphan [Promethazine-Dm Syrup] 5 ml PO Q6HP PRN #240 ml PRN Reason: Cough Transmission Status: Received by [facility] Amoxicillin/Potassium Clav [Augmentin 875-125 Tablet] 1 tab PO Q12H 10 Days #20 tab [facility]: [facility] Benzonatate [Benzonatate 100mg cap] 100 mg PO TIDP PRN #30 cap PRN Reason: Cough Transmission Status: [facility] methylPREDNISolone [Medrol] 4 mg PO DIRECTED 6 Days #21 packet [facility]: [facility] Referrals: Nate Rust APRN [Primary Care Provider] - Forms: Work/School Release Time of Disposition: 17:02 Medical Decision Making - Medical Records Medical records reviewed: No: I reviewed the patient's medical records. - Kan Inquiry Pt receiving controlled substance: No Vital Signs: 10/26/21 16:59 10/26/21 17:02 Temperature 98.4 F 98.4 F Temperature Source Oral Pulse Rate 96 H Pulse Rate [Left] 96 H Respiratory Rate 19 19 Blood Pressure 146/74 H Blood Pressure [Right Arm] 146/74 H Blood Pressure Mean [Right Arm] 98 02 Sat by Pulse Oximetry 98 - Lab Data Lab results reviewed: Yes: I reviewed the patient's lab results. Lab Results 10/26/21 16:45: Strep Scn Rapid Clinic Positive A [facility] [place] HPI - General Stated complaint: sore throat, swelling in neck Time Seen by Provider: 10/26/21 16:59 - History of Present Illness Provider Complaint: He c/o chills and sore throat for the past 2 days. He has a cough, but he denies significant cough or chest congestion. His daughter was diagnosed with strep throat last week. - Related Data Previous Rx's Medication Instructions Recorded prednisone 20 mg tablet 20 mg PO BID 5 Days #10 tab 09/15/21 Albuterol Sulfate [Albuterol 2 puffs IH Q6HP PRN 30 Days #1 each 09/21/21 Sulfate Hfa] Azithromycin [Z-Ernesto 250mg Tab*] 250 mg PO UD DOSE PK #6 tab 09/21/21 dexAMETHasone [Decadron] 6 mg PO DAILY 6 Days #6 tab 09/21/21 Amoxicillin/Potassium Clav 1 tab PO Q12H 10 Days #20 tab 10/26/21 [Augmentin 875-125 Tablet] Benzonatate [Benzonatate 100mg 100 mg PO TIDP PRN #30 cap 10/26/21 cap] Promethazine/Dextromethorphan 5 ml PO Q6HP PRN #240 ml 10/26/21 [Promethazine-Dm Syrup] methylPREDNISolone [Medrol] 4 mg PO DIRECTED 6 Days #21 10/26/21 packet Allergies Allergy/AdvReac Type Severity Reaction Status Date / Time No Known Allergies Allergy Verified 08/28/21 10:14 [facility] History - Hepatitis A Screen Attestation statement:: This patient has been screened for Hepatitis A risk factors. I have reviewed the patient's past medical history: Yes Medical History: Denies:: Cancer, Diabetes Mellitus Type 1, Diabetes Mellitus Type 2, Hypertension, MRSA Laterality Cases: Bilateral: Tonsillectomy Other Surgeries: Yes: No Previous Surgery Amputation: No Fractures: No Comment: I&D 2019 - Dr. Brown - Social History Smoking Status: Current every day smoker Tobacco Type: cigarettes # Packs/Day (cigarettes): 1 Alcohol Intake: current Alcohol Intake Frequency:: holidays/special occasions only Occupational Status: employed Housing: other Household Members: other Family Hx:: No significant family history ROS Obtained: Yes All systems reviewed & no additional complaints - Constitutional Constitutional: Reports chills, Reports fever(s), Reports poor appetite, Reports malaise - Eyes Eyes: Denies eye discharge - Cardiovascular Cardiovascular: Den
[2021-10-26 17:02] VITALS: BP 146/74; PULSE 96; RESP 19; TEMP 36.9
== END 2021-10-26 17:11 | disposition home or self-care (01) ==
PROVIDERS: Emergency Provider Nurse Practitioner Family; PCP Nurse Practitioner Family
DX: J02.0 Streptococcal pharyngitis (principal); F17.210 Nicotine dependence, cigarettes, uncomplicated
CPT/HCPCS: 87880; 99202; G0463

== ENCOUNTER 2021-11-18 09:59 | Emergency (ER) | payer BC, MEDICAID, SELFPAY ==
[2021-11-18 10:00] VITALS: BP 132/78; PULSE 96; RESP 21; TEMP 37.1; O2SAT 98; BMI 38.0
--- NOTE | 2021-11-18 10:44 | HMH.EDUTC ---
[facility] [place] Disposition Clinical Impression: Nausea Diarrhea Qualifiers: Diarrhea type: unspecified type Qualified Code(s): R19.7 - Diarrhea, unspecified Disposition: Home, Self-Care Condition on Discharge: Good Instructions: DI for Nausea -- Adult, Diarrhea, Loperamide Additional Instructions: Drink extra fluids with and between meals. If you have difficulty drinking, try very small amounts of water or suck on ice chips. ? Avoid fruit juices, as these do not replace minerals and can actually increase diarrhea. ? Children and adults can use sports drinks to replenish electrolytes. Younger children and infants should use products formulated for children, like oral rehydration solutions. ? Eat food in small amounts and let your stomach recover. ? Get lots of rest. You may feel tired or weak. ? No greasy or fried foods for the next 24-48 hours BRAT diet Bananas Rice Apples and Walsh ? Make sure to drink plenty of liquids ? Return if needed ? Straight to ER if any life threatening symptoms ? Zofran as prescribed ? You was given an outpatient order for diarrhea panel, please collect specimen and bring back to outpatient lab then call back to the [facility] or follow up with family doctor for results ? Follow up with family doctor in the next 48-72 hours if no improvement or any worsening of symptoms Prescriptions: Dicyclomine HCl [Bentyl 10mg capsule] 10 mg PO TID PRN #15 cap PRN Reason: Cramping Transmission Status: Pending to [facility] Ondansetron [Zofran 4mg ODT] 4 mg PO TIDP PRN #12 tab PRN Reason: Nausea Transmission Status: Pending to [facility] Referrals: Nate Rust APRN [Primary Care Provider] - As needed Time of Disposition: 10:48 Medical Decision Making - Kan Inquiry Pt receiving controlled substance: No Kan was queried for this patient: No Vital Signs: 11/18/21 10:00 Temperature 98.7 F Temperature Source Oral Pulse Rate [Right Brachial] 96 H Respiratory Rate 21 Blood Pressure [Right Arm] 132/78 Blood Pressure Mean [Right Arm] 96 Blood Pressure Source [Right Arm] Automatic Cuff Blood Pressure Position [Right Arm] Sitting 02 Sat by Pulse Oximetry 98 Oxygen Delivery Method Room Air [facility] [place] HPI - General Stated complaint: body aches, diarrhea Time Seen by Provider: 12/22/21 10:44 Mode of Arrival: Ambulatory Source of Information: Patient Limitations: No Limitations Description of Symptoms (Recalled from Triage Doc. by RN): PATIENT C/O BODY ACHES, NAUSEA AND DIARRHEA SINCE LAST NIGHT HEENT Symptoms (Recalled from RN notes): No Resp Symptoms (Recalled from RN notes): No Skin Symptoms (Recalled from RN notes): No MS Symptoms (Recalled from RN notes): No Functional Status (Recalled from RN notes): WNL - History of Present Illness Provider Complaint: Patient state that he has been feeling achy, having nausea and diarrhea State that son is having similary symptoms State that he wasnt sure if there was something he could get to take - Related Data Previous Rx's Medication Instructions Recorded Dicyclomine HCl [Bentyl 10mg 10 mg PO TID PRN #15 cap 11/18/21 capsule] Ondansetron [Zofran 4mg ODT] 4 mg PO TIDP PRN #12 tab 11/18/21 Allergies Allergy/AdvReac Type Severity Reaction Status Date / Time No Known Allergies Allergy Verified 08/28/21 10:14 - Worker's Comp Is this a Worker's Comp case?: No [facility] History - Hepatitis A Screen Drug use history?: No High risk sexual behaviors?: No History of sexually transmitted infection?: No Currently employed?: No Childcare worker?: No Do you have indoor plumbing?: Yes Do you have electricity?: Yes Attestation statement:: This patient has been screened for Hepatitis A risk factors. I have reviewed the patient's past medical history: Yes Medical History: Denies:: Cancer, Diabetes Mellitus Type 1, Diabetes Mellitus Type 2, Hypertension, MRSA Laterality Cases: Bilateral: Tonsillectomy Other Surgeries:
[2021-11-18 11:00] VITALS: BP 132/78; PULSE 96; RESP 21; TEMP 37.1; O2SAT 98
[2021-11-18 13:28] LABS: Adenovirus F 40/41, stool Not Detected (NotDetected); Astrovirus Not Detected (NotDetected); Campylobacter Not Detected (NotDetected); Clostridium Difficile A/B, PCR Not Detected (NotDetected); Cryptosporidium Not Detected (NotDetected); Cyclospora Cayetanesis Not Detected (NotDetected); Entamoeba histolytica Not Detected (NotDetected); Enteroaggregative E coli Not Detected (NotDetected); Enteropathogenic E coli Not Detected (NotDetected); Enterotoxigenic E coli Not Detected (NotDetected); Giardia lamblia Not Detected (NotDetected); Plesimonas Shigalloides, PCR Not Detected (NotDetected); Rotavirus A Not Detected (NotDetected); Salmonella, PCR Not Detected (NotDetected); Sapovirus Not Detected (NotDetected); Shiga-like toxin E coli Not Detected (NotDetected); Shigella Enterovasive E coli Not Detected (NotDetected); Vibrio Cholerae Not Detected (NotDetected); Vibrio, PCR Not Detected (NotDetected); Yersinia Entercolitica, PCR Not Detected (NotDetected)
[2021-11-18 16:06] LABS: Norovirus Detected (NotDetected)
== END 2021-11-18 11:14 | disposition home or self-care (01) ==
PROVIDERS: Emergency Provider Nurse Practitioner; PCP Nurse Practitioner Family
DX: R11.0 Nausea (principal); R19.7 Diarrhea, unspecified; F17.210 Nicotine dependence, cigarettes, uncomplicated
CPT/HCPCS: 87507; 99202; G0463

== ENCOUNTER → 2021-12-09 08:40 | Outpatient (CLI) | payer BC, MEDICAID, SELFPAY | PROVIDERS: Visit Provider Nurse Practitioner | DX: Z20.822 Contact with and (suspected) exposure to COVID-19 (principal) | CPT/HCPCS: C9803; U0003; U0005 ==

== ENCOUNTER 2021-12-13 13:51 | Emergency (ER) | payer OTHER, SELFPAY ==
[2021-12-13 13:52] VITALS: BP 152/96; PULSE 113; RESP 16; TEMP 36.9; O2SAT 96; BMI 36.9
--- NOTE | 2021-12-13 14:08 | HMH.EDABDPAI ---
ED Disposition Clinical Impression: Viral syndrome Disposition: Home, Self-Care Condition on Discharge: Good Instructions: DI for Acute Abdominal Pain, DI for Viral Syndrome Additional Instructions: Please follow up with your primary care physician in 2-3 days for further management. Please take tylenol and ibuprofen for pain control. Please continue to use mucinex as needed, may also use over the counter robotussin to help with cough. Please return to the ED for any concerning symptoms such as bloody stools, inability to eat and drink, worsening abdominal pain, chest pain, difficulty breathing or any other worsening symptoms. You will be called and notified if your COVID results are positive. Please self quarantine for 5 days or until asymptomatic if positive. Referrals: Nate Rust APRN [Primary Care Provider] - Time of Disposition: 15:30 - Critical Care Critical Care Time: No Attestation: On 12/13/21, the high probability of a clinically significant, sudden or life threatening deterioration of the following system(s) required my full and direct attention, intervention and personal management. The time I documented below is in addition to time spent performing reported procedures but includes the following listed in this critical care notation. Medical Decision Making - Medical Records Medical records reviewed: Yes: I reviewed the patient's medical records. - Kan Inquiry Pt receiving controlled substance: No Vital Signs: 12/13/21 13:52 Temperature 98.4 F Temperature Source Oral Pulse Rate [Radial] 113 H Respiratory Rate 16 Blood Pressure [Right Arm] 152/96 H Blood Pressure Mean [Right Arm] 114 Blood Pressure Position [Right Arm] Sitting 02 Sat by Pulse Oximetry 96 Oxygen Delivery Method Room Air - Lab Data Lab results reviewed: Yes: I reviewed the patient's lab results. Lab Results 12/13/21 14:25: WBC 9.8, RBC 5.29, Hgb 16.7, Hct 51.8, MCV 97.9 H, MCH 31.5 H, MCHC 32.2, RDW 13.2, Plt Count 301, MPV 8.5, Neut % (Auto) 71.3, Lymph % (Auto) 16.7, [place] % (Auto) 6.5, Eos % (Auto) 2.3, Baso % (Auto) 3.2 H, Neut # (Auto) 7.0, Lymph # (Auto) 1.6, [place] # (Auto) 0.6, Eos # (Auto) 0.2, Baso # (Auto) 0.3 H 12/13/21 14:25: Sodium 140, Potassium 3.8, Chloride 103, Carbon Dioxide 29, Anion Gap 11.8, BUN 10, Creatinine 0.80, Estimated Creat Clear 230, Estimated GFR 114, Est GFR ( Amer) 137, Glucose 108 H, Calcium 8.9, Total Bilirubin 0.5, AST 37, ALT 41, Alkaline Phosphatase 48, Total Protein 7.2, Albumin 4.4, Globulin 2.8, Albumin/Globulin Ratio 1.6 12/13/21 14:25: Lactate 1.4 12/13/21 14:30: Urine Color Yellow, Urine Appearance Clear, Urine pH 7.0, Ur Specific [place] 1.010, Urine Protein Negative, Urine Glucose (UA) Negative, Urine Ketones Negative, Urine Blood Negative, Urine Nitrate Negative, Urine Bilirubin Negative, Urine Urobilinogen 0.2, Ur Leukocyte Esterase Negative Result diagrams: 12/13/21 14:25 12/13/21 14:25 Orders (Tests/Meds): ED MEDICATIONS Discontinued Medications Generic Name Dose Route Start Last Admin Trade Name Buzz PRN Reason Stop Dose Admin Acetaminophen 1,000 mg 12/13/21 14:06 12/13/21 14:29 Acetaminophen 500mg Tab PO 12/13/21 14:07 1,000 mg ONCE ONE Administration Ibuprofen 600 mg 12/13/21 14:06 12/13/21 14:29 Ibuprofen 600 Mg Tablet PO 12/13/21 14:07 600 mg ONCE ONE Administration ORDERS Category Date Time Status Rapid PCR Covid and Flu A/B Stat Lab 12/13/21 14:12 Received Urinalysis and Microscopic Stat Lab 12/13/21 14:30 Results Urine Culture Stat Micro 12/13/21 14:30 Received Medical Decision Narrative: Mr. Montoya is a 31 yo male w/ no significant PMH who presents to the ED for right sided abdominal pain for 2d in the setting of increased coughing and diarrhea symptoms for a week. Patient is afebrile and hemodynamically stable on arrival. Physical exam patient has equal breath sounds bilaterally. No wheezing, rhales or rhonchi.
[2021-12-13 14:39] LABS: Basophils # 0.3 K/mm3 (0-0.2); Basophils % 3.2 % (0.1-2.0); Eosinophils # 0.2 K/mm3 (0.0-0.4); Eosinophils % 2.3 % (0.1-12.0); Hematocrit 51.8 % (42.0-52.0); Hemoglobin 16.7 g/dL (14.1-18.0); Lymphocytes # 1.6 K/mm3 (0.7-4.5); Lymphocytes % 16.7 % (10-50); Mean Corpuscular HGB Conc 32.2 g/dL (31.8-35.4); Mean Corpuscular Hemoglobin 31.5 pg (27.0-31.2); Mean Corpuscular Volume 97.9 fl (80-94); Mean Platelet Volume 8.5 fl (7.4-10.4); Monocytes # 0.6 K/mm3 (0.1-1.0); Monocytes % 6.5 % (1.7-9.3); Neutrophils % 71.3 % (37.0-80.0); Platelet Count 301 K/mm3 (142-424); Red Blood Count 5.29 M/mm3 (4.60-6.20); Red Cell Distribution Width 13.2 % (11.5-17.5); White Blood Count 9.8 K/mm3 (4.8-10.8)
[2021-12-13 14:39] LABS: Microscopic, Urine URINE MICROSCOPIC (MICROSCOPIC)
[2021-12-13 14:41] LABS: Coronavirus 19, PCR Not Detected (NotDetected); Influenza A, PCR Not Detected (NotDetected); Influenza B, PCR Not Detected (NotDetected)
[2021-12-13 14:48] LABS: Appearance,Urine CLEAR (Clear); Bilirubin,Urine Negative (Negative); Blood, Urine Negative (Negative); Color,Urine YELLOW (Yellow); Glucose,Urine (UA) Negative (Negative); Ketones,Urine Negative (Negative); Leukocyte Esterase,Urine Negative (Negative); Nitrate,Urine Negative (Negative); Protein,Urine Negative (Negative); Urobilinogen,Urine 0.2 EU/dl (0.2)
[2021-12-13 15:00] LABS: Chloride 103 mmol/L (98-107); Potassium 3.8 mmoL/L (3.5-5.1); Sodium 140 mmol/L (136-145)
[2021-12-13 15:02] LABS: Blood Urea Nitrogen 10 mg/dl (9-20); Creatinine Clearance Estimated 230 mL/min (50-200); Estimated Glomerular Filt Rate 114 ml/min (>60); GFR (African American) 137 ML/MIN (>60); Lactic Acid 1.4 mmol/L (0.7-2.1)
[2021-12-13 15:03] LABS: Alanine Aminotransferase 41 U/L (12-78); Albumin Level 4.4 g/dl (3.5-5.0); Albumin/Globulin Ratio 1.6 (1.1-1.8); Alkaline Phosphatase 48 U/L (38-126); Anion Gap 11.8 mEq/L (5-15); Aspartate Amino Transferase 37 U/L (17-59); Bilirubin,Total 0.5 mg/dl (0.2-1.3); Calcium 8.9 mg/dl (8.4-10.2); Carbon Dioxide 29 mmol/L (22.0-30.0); Globulin 2.8 g/dL (1.3-3.2); Glucose 108 mg/dl (74-100); Total Protein,Serum 7.2 g/dl (6.3-8.2)
[2021-12-13 17:25] VITALS: BP 132/78; PULSE 78; RESP 16; TEMP 36.6; O2SAT 98
== END 2021-12-13 17:27 | disposition home or self-care (01) ==
PROVIDERS: Emergency Provider Student in an Organized Health Care Education/Training Program; PCP Nurse Practitioner Family
DX: B34.9 Viral infection, unspecified (principal); R10.31 Right lower quadrant pain; Z20.822 Contact with and (suspected) exposure to COVID-19; F17.210 Nicotine dependence, cigarettes, uncomplicated
CPT/HCPCS: 80053; 81001; 83605; 85025; 87086; 99282; C9803; U0003; U0005

== ENCOUNTER 2021-12-14 15:03 | Emergency (ER) | payer OTHER, SELFPAY ==
[2021-12-14 15:15] VITALS: BP 151/98; PULSE 101; RESP 18; TEMP 37.2; O2SAT 99; BMI 38.0
--- NOTE | 2021-12-14 15:43 | HMH.EDUTC ---
[facility] [place] Disposition Clinical Impression: Otitis media Qualifiers: Otitis media type: unspecified Laterality: right Qualified Code(s): H66.91 - Otitis media, unspecified, right ear Disposition: Home, Self-Care Condition on Discharge: Good Instructions: Middle Ear Infection, DI for Vertigo, Meclizine Additional Instructions: *Monitor Temp, Over the counter Motrin or Tylenol as directed/as needed Tylenol every 4 hours and Motrin every 6 hours (as long as your family doctor has told you that you can take it) for fever or pain. and straight to ER if unable to lower temp less than 101.0 after medication given *Warm salt water gargles may help to soothe the throat *Throat Lozenges *Warm fluids like tea with honey may help to soothe the throat *Sleep elevated *Humidifier/Vaporizer *Flonase 2 sprays in each nostril daily but be aware that it may take 2-3 days before you notice improvement Take medication as prescribed Follow up with Family Doctor if no improvement or any worsening of symptoms Follow up IMMEDIATELY for new or worsening symptoms or no Noticeable improvement over the next 48-72 hours. 911 for difficulty breathing or swallowing Prescriptions: Meclizine HCl [Antivert 25mg tablet] 25 mg PO Q8HP PRN #15 tab PRN Reason: Vertigo Transmission Status: Received by [id number] Amoxicillin/Potassium Clav [Augmentin 875-125 Tablet] 1 tab PO Q12H 10 Days #20 tab Transmission Status: Received by [id number] Referrals: Nate Rust APRN [Primary Care Provider] - As needed Forms: Work/School Release Time of Disposition: 15:57 Medical Decision Making - Kan Inquiry Pt receiving controlled substance: No Kan was queried for this patient: No Vital Signs: 12/14/21 15:15 Temperature 98.9 F Temperature Source Oral Pulse Rate [Right Brachial] 101 H Respiratory Rate 18 Blood Pressure [Right Arm] 151/98 H Blood Pressure Mean [Right Arm] 115 Blood Pressure Source [Right Arm] Automatic Cuff Blood Pressure Position [Right Arm] Sitting 02 Sat by Pulse Oximetry 99 Oxygen Delivery Method Room Air [facility] [place] HPI - General Stated complaint: disconfortin hedadcough HAmDiarrhea Time Seen by Provider: 12/14/21 15:43 Mode of Arrival: Ambulatory Source of Information: Patient Limitations: No Limitations Description of Symptoms (Recalled from Triage Doc. by RN): PATIENT C/O PRESSURE TO FRONT OF HEAD/HEADACHES AND COLD SYMPTOMS SINCE TUESDAY. WAS SEEN YESTERDAY AND TESTED NEGATIVE FOR FLU AND COVID HEENT Symptoms (Recalled from RN notes): Yes Resp Symptoms (Recalled from RN notes): No Skin Symptoms (Recalled from RN notes): No MS Symptoms (Recalled from RN notes): No Functional Status (Recalled from RN notes): WNL - History of Present Illness Provider Complaint: Patient states that he has been having pressure like feeling in right side of his head and behind his eyes States that today he was having a little vertigo and feeling unsteady when he would move quickly or turn his head too quickly and having pain and pressure in his right ear. States that he was seen in ED yesterday for abdominal pain and was tested for COVID and flu and they was negative but today his ear had started hurting worse and he felt off balance so he came in - Related Data Previous Rx's Medication Instructions Recorded Amoxicillin/Potassium Clav 1 tab PO Q12H 10 Days #20 tab 12/14/21 [Augmentin 875-125 Tablet] Meclizine HCl [Antivert 25mg 25 mg PO Q8HP PRN #15 tab 12/14/21 tablet] Allergies Allergy/AdvReac Type Severity Reaction Status Date / Time No Known Allergies Allergy Verified 08/28/21 10:14 - Worker's Comp Is this a Worker's Comp case?: No [facility] History - Hepatitis A Screen Drug use history?: No High risk sexual behaviors?: No History of sexually transmitted infection?: No Currently employed?: No Childcare worker?: No Do you have indoor plumbing?: Yes Do you have electricity?: Yes Attestation stat
[2021-12-14 16:10] VITALS: BP 151/98; PULSE 101; RESP 18; TEMP 37.2; O2SAT 99
== END 2021-12-14 16:13 | disposition home or self-care (01) ==
PROVIDERS: Emergency Provider Nurse Practitioner; PCP Nurse Practitioner Family
DX: H66.91 Otitis media, unspecified, right ear (principal); F17.210 Nicotine dependence, cigarettes, uncomplicated
CPT/HCPCS: 99202; G0463

== ENCOUNTER 2022-02-08 20:11 | Emergency (ER) | payer OTHER, SELFPAY ==
[2022-02-08 21:25] VITALS: BP 132/73; PULSE 93; RESP 20; TEMP 36.9; O2SAT 97; BMI 38.7
--- NOTE | 2022-02-08 22:06 | HMH.EDUTC ---
[facility] [place] Clinical Impression: Gastroenteritis Disposition: Home, Self-Care Condition on Discharge: Good Instructions: DI for Viral Gastroenteritis -- Adult, Gastroenteritis Diet Additional Instructions: Drink plenty of fluids. Take tylenol or ibuprofen for pain or fever. Take the medications as directed. Follow up with your regular doctor. GO TO THE ER FOR ANY WORSENING SYMPTOMS Prescriptions: Ondansetron [Zofran 4mg ODT] 4 mg PO Q8HP PRN #20 tab PRN Reason: Nausea Transmission Status: Received by [id number] Referrals: Jewel Araiza MD [Primary Care Provider] - Forms: Work/School Release Time of Disposition: 22:38 Medical Decision Making - Medical Records Medical records reviewed: No: I reviewed the patient's medical records. - Kan Inquiry Pt receiving controlled substance: No Vital Signs: 02/08/22 21:25 02/08/22 22:37 Temperature 98.4 F 98.4 F Temperature Source Oral Pulse Rate 93 H Pulse Rate [Right Brachial] 93 H Respiratory Rate 20 20 Blood Pressure 132/73 Blood Pressure [Right Arm] 132/73 Blood Pressure Mean [Right Arm] 92 Blood Pressure Source [Right Arm] Automatic Cuff Blood Pressure Position [Right Arm] Sitting 02 Sat by Pulse Oximetry 97 Oxygen Delivery Method Room Air [facility] [place] HPI - General Stated complaint: weakness,diarrhea,abd pain Time Seen by Provider: 02/08/22 22:06 Mode of Arrival: Ambulatory Source of Information: Patient Limitations: No Limitations Description of Symptoms (Recalled from Triage Doc. by RN): PATIENT C/O DIARRHEA, STOMACH ACHE, WEAKNESS AND FATIGUE SINCE TUESDAY. NEEDS A WORK NOTE HEENT Symptoms (Recalled from RN notes): No Resp Symptoms (Recalled from RN notes): No Skin Symptoms (Recalled from RN notes): No MS Symptoms (Recalled from RN notes): No Functional Status (Recalled from RN notes): WNL - History of Present Illness Provider Complaint: He c/o n/v/d for the past 2 days. He states that he is starting to feel better, but he was unable to work today, so he needs an work note. - Related Data Previous Rx's Medication Instructions Recorded Ondansetron [Zofran 4mg ODT] 4 mg PO Q8HP PRN #20 tab 02/08/22 Allergies Allergy/AdvReac Type Severity Reaction Status Date / Time No Known Allergies Allergy Verified 08/28/21 10:14 - Worker's Comp Is this a Worker's Comp case?: No [facility] History - Hepatitis A Screen Drug use history?: No High risk sexual behaviors?: No History of sexually transmitted infection?: No Currently employed?: No Childcare worker?: No Do you have indoor plumbing?: Yes Do you have electricity?: Yes Attestation statement:: This patient has been screened for Hepatitis A risk factors. I have reviewed the patient's past medical history: Yes Medical History: Denies:: Cancer, Diabetes Mellitus Type 1, Diabetes Mellitus Type 2, Hypertension, MRSA Laterality Cases: Bilateral: Tonsillectomy Other Surgeries: Yes: No Previous Surgery Amputation: No Fractures: No Comment: I&D 2019 - Dr. Brown - Social History Smoking Status: Current every day smoker Tobacco Type: cigarettes # Packs/Day (cigarettes): 1 Alcohol Intake: never Alcohol Intake Frequency:: holidays/special occasions only Occupational Status: other Housing: other Household Members: other Family Hx:: No significant family history ROS Obtained: Yes All systems reviewed & no additional complaints - Constitutional Constitutional: Denies chills, Denies fever(s), Reports poor appetite, Reports malaise - Eyes Eyes: Denies eye discharge - ENT Ears, Nose, Mouth, and Throat: Denies dizziness, Denies otalgia, Denies sore throat - Cardiovascular Cardiovascular: Denies chest pain - Respiratory Respiratory: Denies chest congestion, Denies cough, Denies dyspnea, Denies stridor, Denies wheezing - Gastrointestinal Gastrointestingal: Reports: cramping, diarrhea, nausea, vomiting. Denies: abdominal pa
[2022-02-08 22:37] VITALS: BP 132/73; PULSE 93; RESP 20; TEMP 36.9; O2SAT 97
--- NOTE | 2022-02-08 22:40 | PC.NURSE ---
PATIENT REFUSED COVID TEST AT THIS TIME
== END 2022-02-08 22:40 | disposition home or self-care (01) ==
LOC: UTC 20:15
PROVIDERS: Emergency Provider Nurse Practitioner Family; PCP Emergency Medicine
DX: K52.9 Noninfective gastroenteritis and colitis, unspecified (principal); F17.210 Nicotine dependence, cigarettes, uncomplicated
CPT/HCPCS: 99212; G0463

== ENCOUNTER 2022-02-22 10:46 | Emergency (ER) | payer OTHER, SELFPAY ==
[2022-02-22 12:25] VITALS: BP 141/95; PULSE 81; RESP 16; TEMP 36.6; O2SAT 98; BMI 38.7
[2022-02-22 12:42] LABS: UTC Influenza A Antigen Negative (Negative)
--- NOTE | 2022-02-22 12:42 | HMH.EDUTC ---
[facility] [place] Disposition Clinical Impression: Viral syndrome Disposition: Home, Self-Care Condition on Discharge: Good Instructions: Diarrhea, DI for Fatigue, Nausea and Vomiting-Adult Additional Instructions: *Monitor Temp, Over the counter Motrin or Tylenol as directed/as needed Tylenol every 4 hours and Motrin every 6 hours (as long as your family doctor has told you that you can take it) for fever or pain. and straight to ER if unable to lower temp less than 101.0 after medication given *Warm salt water gargles may help to soothe the throat *Throat Lozenges *Warm fluids like tea with honey may help to soothe the throat *Sleep elevated *Humidifier/Vaporizer Make sure to follow up with your Family Doctor for further evaluation and treatment Return if needed Take prescribed zofran for Nausea and vomiting Follow up IMMEDIATELY for new or worsening symptoms or no Noticeable improvement over the next 48-72 hours. 911 for difficulty breathing or swallowing Referrals: Nate Rust APRN [Primary Care Provider] - As needed Forms: Work/School Release Time of Disposition: 13:00 Medical Decision Making - Kan Inquiry Pt receiving controlled substance: No Kan was queried for this patient: No Vital Signs: 02/22/22 12:25 02/22/22 13:06 Temperature 97.9 F 97.9 F Temperature Source Oral Pulse Rate 81 Pulse Rate [Right Brachial] 81 Respiratory Rate 16 16 Blood Pressure 141/95 H Blood Pressure [Right Arm] 141/95 H Blood Pressure Mean [Right Arm] 110 Blood Pressure Source [Right Arm] Automatic Cuff Blood Pressure Position [Right Arm] Sitting 02 Sat by Pulse Oximetry 98 Oxygen Delivery Method Room Air - Lab Data Lab results reviewed: Yes: I reviewed the patient's lab results. Lab Results 02/22/22 12:17: Influenza Type A Ag Negative, Influenza Type B Ag Negative 02/22/22 13:10: Chlamy pneumoniae PCR Not detected, Adenovirus (PCR) Not detected, B. pertussis DNA (PCR) Not detected, Coronavirus OC43 (PCR) Not detected, Coronavirus HKU1 (PCR) Not detected, Coronavirus 229E (PCR) Not detected, SARS-CoV-2 (PCR) Not detected, Coronavirus NL63 (PCR) Not detected, Human Metapneumovir PCR Not detected, Influenza A (H1) PCR Not detected, Influ A (H1N1/09) PCR Not detected, Influenza A (H3) PCR Not detected, Influenza Type A (PCR) Not detected, Influenza Type B (PCR) Not detected, M. pneumoniae (PCR) Not detected, Parainfluenza 1 (PCR) Not detected, Parainfluenza 2 (PCR) Not detected, Parainfluenza 3 (PCR) Not detected, Parainfluenza 4 (PCR) Not detected, RSV (PCR) Not detected, Entero/Rhino (PCR) Detected A [facility] [place] HPI - General Stated complaint: vomiting, diarrhea, weakness, body aches Time Seen by Provider: 02/22/22 12:42 Mode of Arrival: Ambulatory Source of Information: Patient Limitations: No Limitations Description of Symptoms (Recalled from Triage Doc. by RN): PATIENT C/O VOMITING, DIARRHEA, WEAKNESS, FATIGUE AND BODY ACHES SINCE YESTERDAY HEENT Symptoms (Recalled from RN notes): No Resp Symptoms (Recalled from RN notes): No Skin Symptoms (Recalled from RN notes): No MS Symptoms (Recalled from RN notes): No Functional Status (Recalled from RN notes): WNL - History of Present Illness Provider Complaint: Patient states that he had nasal congestion and cough last week but states that yesterday he started having N/V/D again States that he continued to to have through last night and wasnt able to go to work this morning States coni the has been drinking ok but wanted to get checked worried that he may have the flu - Related Data Previous Rx's Medication Instructions Recorded Ondansetron [Zofran 4mg ODT] 4 mg PO Q8HP PRN #20 tab 02/08/22 Allergies Allergy/AdvReac Type Severity Reaction Status Date / Time No Known Allergies Allergy Verified 08/28/21 10:14 - Worker's Comp Is this a Worker's Comp case?: No [facility] History - Hepatitis A Screen Drug use history?: No High risk sexual behaviors?
[2022-02-22 12:43] LABS: UTC Influenza B Antigen Negative (Negative)
[2022-02-22 13:06] VITALS: BP 141/95; PULSE 81; RESP 16; TEMP 36.6; O2SAT 98
[2022-02-22 13:25] LABS: Adenovirus,PCR Not Detected (NotDetected); Bordetella Pertussis Not Detected (NotDetected); Chlamydophila Pneumoniae, PCR Not Detected (NotDetected); Coronavirus 19, PCR Not Detected (NotDetected); Coronavirus 229E Not Detected (NotDetected); Coronavirus NL63 Not Detected (NotDetected); Coronavirus OC43 Not Detected (NotDetected); Coronovirus HKU1,PCR Not Detected (NotDetected); Human Metapneumovirus Not Detected (NotDetected); Influenza A, PCR Not Detected (NotDetected); Influenza AH1, 2009 Not Detected (NotDetected); Influenza AH1, PCR Not Detected (NotDetected); Influenza AH3,PCR Not Detected (NotDetected); Influenza B, PCR Not Detected (NotDetected); Mycoplasma Pneumoniae, PCR Not Detected (NotDetected); Parainfluenza 1, PCR Not Detected (NotDetected); Parainfluenza 2, PCR Not Detected (NotDetected); Parainfluenza 3, PCR Not Detected (NotDetected); Parainfluenza 4, PCR Not Detected (NotDetected); Respiratory Syncytial Virus Not Detected (NotDetected)
[2022-02-22 20:29] LABS: Rhinovirus/Enterovirus Detected (NotDetected)
== END 2022-02-22 13:12 | disposition home or self-care (01) ==
PROVIDERS: Emergency Provider Nurse Practitioner; PCP Nurse Practitioner Family
DX: R11.2 Nausea with vomiting, unspecified (principal); R19.7 Diarrhea, unspecified; B34.1 Enterovirus infection, unspecified; R53.1 Weakness; R53.82 Chronic fatigue, unspecified; M79.10 Myalgia, unspecified site; F17.210 Nicotine dependence, cigarettes, uncomplicated; Z20.822 Contact with and (suspected) exposure to COVID-19
CPT/HCPCS: 87581; 87632; 87798; 87804; 99213; C9803; G0463; U0003; U0005

== ENCOUNTER 2022-04-29 09:46 | Emergency (ER) | payer OTHER, SELFPAY ==
[2022-04-29 10:30] VITALS: BP 115/70; PULSE 82; RESP 19; TEMP 37.2; O2SAT 98; BMI 37.6
[2022-04-29 10:51] LABS: Strep Scrn Group A (Rapid) Negative (Negative)
--- NOTE | 2022-04-29 10:58 | HMH.EDUTC ---
[facility] Disposition Clinical Impression: Loss of perception for taste Disposition: Home, Self-Care Condition on Discharge: Good Instructions: DI for COVID-19 (Suspected or Confirmed ), Preventing the Spread of Coronavirus Discharge Instructions, DI for Viral Syndrome Additional Instructions: *Monitor Temp, Over the counter Motrin or Tylenol as directed/as needed Tylenol every 4 hours and Motrin every 6 hours (as long as your family doctor has told you that you can take it) for fever or pain. and straight to ER if unable to lower temp less than 101.0 after medication given *Warm salt water gargles may help to soothe the throat *Throat Lozenges *Warm fluids like tea with honey may help to soothe the throat *Sleep elevated *Humidifier/Vaporizer You was tested for COVID today Your results should be available in the next 24-48 hours on the [facility] My Health Portal you can view it there Your throat swab was sent for culture. Those results are typically sent to your primary care. Be sure to follow up in 2-3 days with your family doctor/primary care physician if no improvement so they can review those result and treat if necessary. If you don?t have a primary care doctor, I recommend you get one but in the mean time, you will have to return to a walk in clinic Follow up IMMEDIATELY for new or worsening symptoms or no Noticeable improvement over the next 48-72 hours. 911 for difficulty breathing or swallowing Referrals: Austin York MD [Primary Care Provider] - As needed Forms: Work/School Release Time of Disposition: 11:04 Medical Decision Making - Kan Inquiry Pt receiving controlled substance: No Kan was queried for this patient: No Vital Signs: 04/29/22 10:30 Temperature 98.9 F Temperature Source Oral Pulse Rate [Right Brachial] 82 Respiratory Rate 19 Blood Pressure [Right Arm] 115/70 Blood Pressure Mean [Right Arm] 85 Blood Pressure Source [Right Arm] Automatic Cuff Blood Pressure Position [Right Arm] Sitting 02 Sat by Pulse Oximetry 98 Oxygen Delivery Method Room Air - Lab Data Lab results reviewed: Yes: I reviewed the patient's lab results. Lab Results 04/29/22 10:40: Group A Strep Rapid Negative Orders (Tests/Meds): ORDERS Category Date Time Status Covid-19 Nasal PCR ([facility]) Routine Lab 04/29/22 10:28 Received Strep Screen Confirmation Stat Micro 04/29/22 10:40 Received [facility] HPI - General Stated complaint: loss of smell/taste, cough, runny nose Time Seen by Provider: 04/29/22 10:58 Mode of Arrival: Ambulatory Source of Information: Patient Limitations: No Limitations Description of Symptoms (Recalled from Triage Doc. by RN): PATIENT C/O RUNNY NOSE, DRY COUGH, AND LOSS OF TASTE AND SMELL SINCE TUESDAY HEENT Symptoms (Recalled from RN notes): Yes Resp Symptoms (Recalled from RN notes): Yes Skin Symptoms (Recalled from RN notes): No MS Symptoms (Recalled from RN notes): No Functional Status (Recalled from RN notes): WNL - History of Present Illness Provider Complaint: Patient states that he has been on Amoxicillin for ear infection in left ear, States that he has been having runny nose and dry cough States that he wants to get checked for strep and also noticed he lost his taste and smell and wanted to get tested for COVID - Related Data Allergies Allergy/AdvReac Type Severity Reaction Status Date / Time No Known Allergies Allergy Verified 08/28/21 10:14 - Worker's Comp Is this a Worker's Comp case?: No [facility] History - Hepatitis A Screen Attestation statement:: This patient has been screened for Hepatitis A risk factors. I have reviewed the patient's past medical history: Yes Medical History: Denies:: Cancer, Diabetes Mellitus Type 1, Diabetes Mellitus Type 2, Hypertension, MRSA Laterality Cases: Bilateral: Tonsillectomy Other Surgeries: Yes: No Previous Surgery Amputation: No Fractures: No Comment: I&D 2019 - Dr. Brown - Social History Smoking Status: Curr
[2022-04-29 11:05] VITALS: BP 115/70; PULSE 82; RESP 19; TEMP 37.2; O2SAT 98
== END 2022-04-29 11:10 | disposition home or self-care (01) ==
PROVIDERS: Emergency Provider Nurse Practitioner; PCP Internal Medicine Adolescent Medicine
DX: R43.9 Unspecified disturbances of smell and taste (principal); R05.9 Cough, unspecified; R09.89 Other specified symptoms and signs involving the circulatory and respiratory systems; Z72.0 Tobacco use
CPT/HCPCS: 87430; 99212; C9803; G0463; U0003; U0005

== ENCOUNTER 2022-06-28 08:00 | Emergency (ER) | payer BC, OTHER, SELFPAY ==
[2022-06-28] VITALS (7 sets, daily range): BP systolic 120–154; BP diastolic 68–88; PULSE 80–107; RESP 18–20; TEMP 36.6–36.8; O2SAT 96–99; BMI 38.3
[2022-06-28 08:12] LABS: Coronavirus 19, PCR Not Detected (NotDetected); Influenza A, PCR Not Detected (NotDetected); Influenza B, PCR Not Detected (NotDetected)
--- NOTE | 2022-06-28 08:44 | CT_ITS ---
FINAL REPORT CLINICAL HISTORY: fever, [place], pain in top of right head COMPARISON: 01/03/2019 FINDINGS: Axial images of the head were obtained without contrast. Coronal reformatted images were also obtained.This study was performed with techniques to keep radiation doses as low as reasonably achievable (ALARA). Individualized dose reduction techniques using automated exposure control or adjustment of mA and/or kV according to the patient's size were employed. There is no evidence of intracranial hemorrhage or mass. The ventricular size is within normal limits. There is no evidence of shift of the midline structures. No abnormal extra axial fluid collection is identified. No skull abnormality is seen on the bone window images. There is a polyp or retention cyst in the right maxillary sinus. IMPRESSION: No acute intracranial abnormality. Reviewed, Interpreted and Dictated by Adalid Jarrett III, MD Transcribed by Karen Tenorio Authenticated and . [facility]
--- NOTE | 2022-06-28 08:55 | HMH.EDGENADL ---
ED Disposition Clinical Impression: Atypical chest pain Headache Qualifiers: Headache type: unspecified Headache chronicity pattern: unspecified pattern Intractability: not intractable Qualified Code(s): R51.9 - Headache, unspecified Left otitis media Qualifiers: Otitis media type: suppurative Chronicity: acute Recurrence: not specified as recurrent Spontaneous tympanic membrane rupture: without spontaneous rupture Qualified Code(s): H66.002 - Acute suppurative otitis media without spontaneous rupture of ear drum, left ear Disposition: Home, Self-Care Condition on Discharge: Good Instructions: DI for Middle Ear Infection-Adult, DI for Headache, DI for Atypical Chest Pain Additional Instructions: Amoxicillin as prescribed. Fioricet as needed for headache. Additional instructions for HEADACHE: See your physician as soon as possible for further evaluation. Return immediately if worsening headache, vomiting, problems with vision or speech, fever, numbness or weakness of the extremities, neck pain or stiffness. Additional instructions for CHEST PAIN: See your physician as soon as possible for further evaluation. Return immediately if worsening chest pain, vomiting, shortness of breath, fever, coughing of blood. Prescriptions: Butalb/Acetaminophen/Caffeine [Fioricet 50-300-40 mg Capsule] 1 each PO Q4HP PRN #10 capsule PRN Reason: Headache Transmission Status: [facility] to [facility] Amoxicillin [Amoxicillin 500mg Cap] 500 mg PO TID #30 cap Transmission Status: Pending to [facility] Referrals: Austin York MD [Primary Care Provider] - - Critical Care Critical Care Time: No Attestation: On 06/28/22, the high probability of a clinically significant, sudden or life threatening deterioration of the following system(s) required my full and direct attention, intervention and personal management. The time I documented below is in addition to time spent performing reported procedures but includes the following listed in this critical care notation. Medical Decision Making - [place] Inquiry Pt receiving controlled substance: No Vital Signs: 06/28/22 08:01 06/28/22 08:31 06/28/22 09:00 Temperature 98.3 F Temperature Source Oral Pulse Rate 92 H 94 H Pulse Rate [Radial] 107 H Respiratory Rate 20 18 18 Blood Pressure 120/87 124/88 Blood Pressure [Right Arm] 154/79 H Blood Pressure Mean 98 100 Blood Pressure Mean [Right Arm] 104 Blood Pressure Position [Right Arm] Sitting 02 Sat by Pulse Oximetry 97 96 96 Oxygen Delivery Method Room Air 06/28/22 09:45 06/28/22 10:15 06/28/22 10:30 Temperature Temperature Source Pulse Rate 94 H 80 102 H Pulse Rate [Radial] Respiratory Rate 18 18 18 Blood Pressure 122/75 132/79 136/86 Blood Pressure [Right Arm] Blood Pressure Mean 90 106 Blood Pressure Mean [Right Arm] Blood Pressure Position [Right Arm] 02 Sat by Pulse Oximetry 98 98 99 Oxygen Delivery Method - Lab Data Lab Results 06/28/22 08:05: SARS-CoV-2 (PCR) Not detected, Influenza A Untype (PCR) Not detected, Influenza Type B (PCR) Not detected 06/28/22 08:45: Group A Strep Rapid Negative 06/28/22 09:30: WBC 14.9 H, RBC 5.36, Hgb 17.0, Hct 52.0, MCV 97.1 H, MCH 31.8 H, MCHC 32.7, RDW 13.0, Plt Count 336, MPV 8.0, Neut % (Auto) 73.9, Lymph % (Auto) 18.2, [place] % (Auto) 5.2, Eos % (Auto) 1.3, Baso % (Auto) 1.4, Neut # (Auto) 11.0 H, Lymph # (Auto) 2.7, [place] # (Auto) 0.8, Eos # (Auto) 0.2, Baso # (Auto) 0.2 06/28/22 09:30: Sodium 137, Potassium 4.4, Chloride 101, Carbon Dioxide 28, Anion Gap 12.4, BUN 13, Creatinine 0.70, Estimated Creat Clear 272, Estimated GFR 132, Est GFR ( Amer) 160, Glucose 109 H, Calcium 9.8, Total Bilirubin 0.5, AST 56, ALT 52, Alkaline Phosphatase 82, Troponin I < 0.01, Total Protein 8.4 H, Albumin 5.1 H, Globulin 3.3 H, Albumin/Globulin Ratio 1.5 Result diagrams: 06/28/22 09:30 06/28/22 09:30 Orders (Tests/Me
--- NOTE | 2022-06-28 08:59 | PC.NURSE ---
MD at bedside assessing pt
[2022-06-28 09:05] LABS: Strep Scrn Group A (Rapid) Negative (Negative)
--- NOTE | 2022-06-28 09:07 | XR_ITS ---
FINAL REPORT CLINICAL HISTORY: chest pain, soa COMPARISON: 09/21/2021 FINDINGS: Two views of the chest were obtained. The heart size and pulmonary vascularity are within normal limits. The mediastinum is normal. No acute pulmonary abnormality is identified. There is no pneumothorax. The bony thorax is intact. IMPRESSION: No active cardiopulmonary disease. Reviewed, Interpreted and Dictated by Adalid Jarrett III, MD Transcribed by Karen Tenorio Authenticated and . [facility]
--- NOTE | 2022-06-28 09:07 | PC.NURSE ---
notified Rad of CT order, spoke with Hever.
--- NOTE | 2022-06-28 09:08 | PC.NURSE ---
Pt to CT via w/c
--- NOTE | 2022-06-28 09:09 | PC.NURSE ---
pt to radiology via wheelchair
--- NOTE | 2022-06-28 09:24 | PC.NURSE ---
Pt returned from Rad
--- NOTE | 2022-06-28 09:42 | ECG_ITS ---
APPROVED REPORT Exam: Resting ECG HR:91 bpm ECG Measurements Heart Rate 91 AXES ND 170 P 55 QRSd 75 QRS 19 QT 328 T 36 QTc 377 Conclusion SINUS RHYTHM NORMAL ECG UNCONFIRMED REPORT Electronically signed by : Luciano Fleming MD 06/28/2022 20:35:42
[2022-06-28 09:44] LABS: Basophils # 0.2 K/mm3 (0-0.2); Basophils % 1.4 % (0.1-2.0); Eosinophils # 0.2 K/mm3 (0.0-0.4); Eosinophils % 1.3 % (0.1-12.0); Lymphocytes # 2.7 K/mm3 (0.7-4.5); Lymphocytes % 18.2 % (10-50); Mean Corpuscular HGB Conc 32.7 g/dL (31.8-35.4); Mean Corpuscular Hemoglobin 31.8 pg (27.0-31.2); Mean Corpuscular Volume 97.1 fl (80-94); Monocytes # 0.8 K/mm3 (0.1-1.0); Monocytes % 5.2 % (1.7-9.3); Neutrophils % 73.9 % (37.0-80.0); Platelet Count 336 K/mm3 (142-424); Red Blood Count 5.36 M/mm3 (4.60-6.20); White Blood Count 14.9 K/mm3 (4.8-10.8)
[2022-06-28 09:53] LABS: Chloride 101 mmol/L (98-107); Potassium 4.4 mmoL/L (3.5-5.1); Sodium 137 mmol/L (136-145)
[2022-06-28 09:55] LABS: Alanine Aminotransferase 52 U/L (12-78); Aspartate Amino Transferase 56 U/L (17-59); Blood Urea Nitrogen 13 mg/dl (9-20); Creatinine Clearance Estimated 272 mL/min (50-200); Estimated Glomerular Filt Rate 132 ml/min (>60); GFR (African American) 160 ML/MIN (>60)
[2022-06-28 09:56] LABS: Albumin Level 5.1 g/dl (3.5-5.0); Albumin/Globulin Ratio 1.5 (1.1-1.8); Alkaline Phosphatase 82 U/L (38-126); Anion Gap 12.4 mEq/L (5-15); Bilirubin,Total 0.5 mg/dl (0.2-1.3); Calcium 9.8 mg/dl (8.4-10.2); Carbon Dioxide 28 mmol/L (22.0-30.0); Globulin 3.3 g/dL (1.3-3.2); Glucose 109 mg/dl (74-100); Total Protein,Serum 8.4 g/dl (6.3-8.2)
[2022-06-28 10:17] LABS: Troponin I < 0.01 ng/ml (0.00-0.034)
--- NOTE | 2022-06-28 10:32 | PC.NURSE ---
pt resting warm blankets provided as requested.
== END 2022-06-28 11:11 | disposition home or self-care (01) ==
PROVIDERS: Emergency Provider Emergency Medicine; PCP Internal Medicine Adolescent Medicine
DX: R07.89 Other chest pain (principal); R51.9 Headache, unspecified; H66.002 Acute suppurative otitis media without spontaneous rupture of ear drum, left ear; Z20.822 Contact with and (suspected) exposure to COVID-19
CPT/HCPCS: 70450; 71046; 80053; 84484; 85025; 87430; 93005; 99285; C9803; U0003; U0005

== ENCOUNTER 2022-07-10 11:49 | Emergency (ER) | payer BC, OTHER, SELFPAY ==
[2022-07-10 12:29] VITALS: BP 120/77; PULSE 87; RESP 16; TEMP 36.7; O2SAT 98; BMI 38.3
--- NOTE | 2022-07-10 13:18 | HMH.EDUTC ---
[facility] [place] Impression: Right corneal abrasion Qualifiers: Encounter type: initial encounter Qualified Code(s): S05.01XA - Injury of conjunctiva and corneal abrasion without foreign body, right eye, initial encounter Disposition: Home, Self-Care Condition on Discharge: Good Instructions: How to Instill Eye Drops, DI for Corneal Abrasion, Corneal Abrasion Additional Instructions: Use the eye drops as directed. Follow up with your regular doctor. Follow up with an eye doctor if your symptoms are not improving in 48 hours. . GO TO THE ER FOR ANY WORSENING SYMPTOMS Prescriptions: Ibuprofen [Ibuprofen 800mg Tablet] 800 mg PO Q8HP PRN #30 tab PRN Reason: Moderate Pain Transmission Status: Received by [facility] Sulfacetamide Sodium [Bleph-10] 1 drp OP Q3H 7 Days #1 ml Transmission Status: Received by [facility] Referrals: Austin York MD [Primary Care Provider] - Time of Disposition: 13:26 Medical Decision Making - Medical Records Medical records reviewed: No: I reviewed the patient's medical records. - [place] Inquiry Pt receiving controlled substance: No Vital Signs: 07/10/22 12:29 07/10/22 13:35 Temperature 98.1 F 98.1 F Temperature Source Oral Pulse Rate 87 Pulse Rate [Left] 87 Respiratory Rate 16 16 Blood Pressure 120/77 Blood Pressure [Right Arm] 120/77 Blood Pressure Mean [Right Arm] 91 02 Sat by Pulse Oximetry 98 [facility] [place] - General Stated complaint: eye redness rt eye Time Seen by Provider: 07/10/22 12:45 Mode of Arrival: Ambulatory Source of Information: Patient Limitations: No Limitations Description of Symptoms (Recalled from Triage Doc. by RN): patient comes in with complaints of pink eye in right eye. symptoms began yesterday morning HEENT Symptoms (Recalled from RN notes): Yes Resp Symptoms (Recalled from RN notes): No Skin Symptoms (Recalled from RN notes): No MS Symptoms (Recalled from RN notes): No Functional Status (Recalled from RN notes): n/a - History of Present Illness Provider Complaint: He states that since he woke up yesterday morning he has had right eye itching, discomfort, redness and excessive tear production. His eye was matted together yesterday and today. 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 - Related Data Previous Rx's Medication Instructions Recorded Amoxicillin [Amoxicillin 500mg 500 mg PO TID #30 cap 06/28/22 Cap] Butalb/Acetaminophen/Caffeine 1 each PO Q4HP PRN #10 cap 06/28/22 [Fioricet 50-300-40 mg Capsule] Ibuprofen [Ibuprofen 800mg 800 mg PO Q8HP PRN #30 tab 07/10/22 Tablet] Sulfacetamide Sodium [Bleph-10] 1 drp OP Q3H 7 Days #1 ml 07/10/22 Allergies Allergy/AdvReac Type Severity Reaction Status Date / Time No Known Allergies Allergy Verified 07/10/22 12:31 - Worker's Comp Is this a Worker's Comp case?: No [facility] History - Hepatitis A Screen Attestation statement:: This patient has been screened for Hepatitis A risk factors. I have reviewed the patient's past medical history: Yes Medical History: Denies:: Cancer, Diabetes Mellitus Type 1, Diabetes Mellitus Type 2, Hypertension, MRSA Laterality Cases: Bilateral: Tonsillectomy Other Surgeries: Yes: No Previous Surgery Amputation: No Fractures: No Comment: I&D 2019 - Dr. Brown - Social History Smoking Status: Current every day smoker Tobacco Type: cigarettes # Packs/Day (cigarettes): 1 Alcohol Intake: never Alcohol Intake Frequency:: holidays/special occasions only Occupational Status: other Housing: other Household Members: other Family Hx:: No significant family history ROS Obtained: Yes All systems reviewed & no additional complaints - Constitutional Constitutional: Denies chills, Denies fever(s) - Eyes Eyes: Reports as per HPI - ENT Ears, Nose, Mouth, and Thr
[2022-07-10 13:35] VITALS: BP 120/77; PULSE 87; RESP 16; TEMP 36.7
== END 2022-07-10 13:37 | disposition home or self-care (01) ==
PROVIDERS: Emergency Provider Nurse Practitioner Family; PCP Internal Medicine Adolescent Medicine
DX: S05.01XA Injury of conjunctiva and corneal abrasion without foreign body, right eye, initial encounter (principal)
CPT/HCPCS: 99212; G0463

== ENCOUNTER 2023-07-05 08:44 | Emergency (ER) | payer BC, OTHER, SELFPAY ==
[2023-07-05 08:44] VITALS: BP 148/80; PULSE 83; RESP 16; TEMP 36.7; O2SAT 97; BMI 36.2
--- NOTE | 2023-07-05 08:53 | EXP.UTC ---
Discharge Plan Disposition Patient Disposition: Home, Self-Care Condition: Good Prescriptions Prescriptions: New ondansetron 4 mg Tablet,Disintegrating 4 mg PO Q8H PRN (Reason: Nausea) Qty: 12 0RF No Action amoxicillin 500 MG capsule 500 mg PO TID Qty: 30 0RF kdifpxipfs-rprqscqblvfwk-fpzj 1 EACH capsule 1 each PO Q4HP PRN (Reason: Headache) Qty: 10 0RF ibuprofen 800 MG tablet 800 mg PO Q8HP PRN (Reason: Moderate Pain) Qty: 30 0RF sulfacetamide sodium 5 ML drops 1 drp OP Q3H 7 Days Qty: 1 0RF Rx Instructions: Instill 1 drop in your right eye every 3 hours while you are awake for the next 7 days. Referrals Follow up/Referrals: Nate Rust APRN [Primary Care Provider] - See instructions Activity Restrictions/Add. Instructions Additional Instructions/Restrictions: Drink plenty of fluids. Take tylenol or ibuprofen for pain or fever. Take the medications as directed. Follow up with your regular doctor. GO TO THE ER FOR ANY WORSENING SYMPTOMS His symptoms prevented him from working on 07/04/23. He needs to be excused for that day too. Clinical Impressions Clinical Impression: Gastroenteritis Stand Alone Forms Stand Alone Forms: Work/School Release Instructions Patient Instructions: DI for Viral Gastroenteritis -- Adult, Ondansetron Discharge ED Provider: Austin Tamayo [facility] General Stated complaint: stomach pain, vomiting, diarrhea Time Seen by Provider: 07/05/23 08:52 History of Present Illness Provider Complaint: He states that he has had n/v/d for the past 1 day. He denies abdominal pain. He denies fever. Related Data Previous Rx's Medication Instructions Recorded amoxicillin 500 mg capsule 500 mg PO TID #30 caps 06/28/22 [id number]-[id number] 1 each PO Q4HP PRN Headache #10 06/28/22 50 mg-300 mg-40 mg capsule caps ibuprofen 800 mg tablet 800 mg PO Q8HP PRN Moderate Pain 07/10/22 #30 tabs sulfacetamide sodium 10 % eye drops 1 drp ophthalmic (eye) Q3H 7 days 07/10/22 #1 mL ondansetron 4 mg disintegrating 4 mg PO Q8H PRN Nausea #12 tabs 07/05/23 tablet Allergies Allergy/AdvReac Type Severity Reaction Status Date / Time No Known Allergies Allergy Verified 07/10/22 12:31 [facility] Disclaimer: The information contained in this section may have been updated after the patient was seen, as this information can be updated by other users. Social History Smoking Status: Current every day smoker tobacco type: cigarettes packs per day: 1 second hand exposure: No alcohol intake: never current occupational status: other Travel in the last 8 weeks: None household members: other housing: other ROS Obtained: Yes All systems reviewed & no additional complaints except as documented Constitutional Constitutional: Denies chills, Denies fever(s) and Reports poor appetite ENT Ears, Nose, Mouth, and Throat: Denies dizziness and Denies sore throat Cardiovascular Cardiovascular: Denies dyspnea Respiratory Respiratory: Denies chest congestion, Denies cough and Denies dyspnea Gastrointestinal Gastrointestingal: Reports as per HPI; Denies abdominal pain Musculoskeletal Musculoskeletal: Denies arthralgias Integumentary/Breasts Skin/Breast: Denies rash Neurologic Neurologic: Denies dizziness Physical Exam General General appearance: alert and in no apparent distress Head Head exam: atraumatic and normocephalic Eye Eye exam: Present normal appearance, PERRL and EOMI ENT ENT exam: Present normal exam, normal oropharynx, mucous membranes moist, TM's normal bilaterally and normal external ear exam Neck Neck exam: Present normal inspection, full ROM and trachea midline; Absent tenderness, meningismus or lymphadenopathy Chest Chest inspection: Present normal inspection and symmetric chest wall rise; Absent tenderness, rash or abscess Respiratory Respiratory exam: Present normal lung sounds bilaterally; Absent respir
[2023-07-05 09:41] VITALS: BP 148/80; PULSE 83; RESP 16; TEMP 36.7; O2SAT 97
== END 2023-07-05 09:41 | disposition home or self-care (01) ==
PROVIDERS: Emergency Provider Nurse Practitioner Family; PCP Nurse Practitioner Family
DX: K52.9 Noninfective gastroenteritis and colitis, unspecified (principal); R11.2 Nausea with vomiting, unspecified; F17.210 Nicotine dependence, cigarettes, uncomplicated
CPT/HCPCS: 99212; 99214; G0463

== ENCOUNTER → 2023-09-06 08:29 | Outpatient (CLI) | payer BC, OTHER, SELFPAY ==
--- NOTE | 2023-09-06 08:33 | XR_ITS ---
FINAL REPORT CLINICAL HISTORY: lt knee pain FINDINGS: 3 views of the left knee were obtained. There is no acute fracture or dislocation. The joint spaces are intact. There is no joint effusion. IMPRESSION: No acute process. Reviewed, Interpreted and Dictated by Adalid Jarrett III, MD Transcribed by Amilcar Milligan Authenticated and [facility]
== END ==
PROVIDERS: PCP Nurse Practitioner Family; Visit Provider Orthopaedic Surgery
DX: M25.562 Pain in left knee (principal)
CPT/HCPCS: 73562

== ENCOUNTER → 2023-09-22 10:36 | Outpatient (CLI) | payer BC, OTHER, SELFPAY ==
[2023-09-22 11:37] LABS: Basophils # 0.1 K/mm3 (0-0.2); Basophils % 0.7 % (0.1-2.0); Eosinophils # 0.1 K/mm3 (0.0-0.4); Eosinophils % 1.3 % (0.1-12.0); Hemoglobin 16.1 g/dL (14.1-18.0); Lymphocytes # 3.1 K/mm3 (0.7-4.5); Lymphocytes % 30.6 % (10-50); Mean Corpuscular HGB Conc 34.3 g/dL (31.8-35.4); Mean Corpuscular Hemoglobin 32.3 pg (27.0-31.2); Mean Corpuscular Volume 94.2 fl (80-94); Mean Platelet Volume 7.9 fl (7.4-10.4); Monocytes # 0.6 K/mm3 (0.1-1.0); Monocytes % 5.9 % (1.7-9.3); Neutrophils # 6.3 K/mm3 (1.8-7.8); Neutrophils % 61.6 % (37.0-80.0); Platelet Count 318 K/mm3 (142-424); Red Blood Count 4.99 M/mm3 (4.60-6.20); Red Cell Distribution Width 12.8 % (11.5-17.5); White Blood Count 10.2 K/mm3 (4.8-10.8)
--- NOTE | 2023-09-22 12:32 | MR_ITS ---
FINAL REPORT CLINICAL HISTORY: lt knee pain medially. hx of torn acl. reevaluate to see if patient needs sx. COMPARISON: 08/25/2021 FINDINGS: Multiplanar MR imaging of the right knee was performed without contrast. There is a tear of the posterior horn of the medial meniscus. There is no definite tear of the lateral meniscus. The anterior cruciate ligament is torn. The posterior cruciate ligament is intact. The medial collateral ligament and lateral ligamentous complex are intact. The patellar and quadriceps tendons are intact. There is no evidence of fracture. No focal abnormality is identified of the articular cartilage. Small joint effusion is seen. The musculature is intact. No soft tissue mass or cyst is identified. IMPRESSION: Tear posterior horn medial meniscus. Tear of the anterior cruciate ligament. Reviewed, Interpreted and Dictated by Adalid Jarrett III, MD Transcribed by Lesley Dyer Authenticated and [facility]
[2023-09-22 12:59] LABS: Alanine Aminotransferase 43 U/L (12-78); Albumin Level 4.3 g/dl (3.5-5.0); Albumin/Globulin Ratio 1.7 (1.1-1.8); Alkaline Phosphatase 63 U/L (38-126); Anion Gap 16.3 mEq/L (5-15); Aspartate Amino Transferase 35 U/L (17-59); Bilirubin,Total 0.4 mg/dl (0.2-1.3); Blood Urea Nitrogen 13 mg/dl (9-20); Calcium 9.3 mg/dl (8.4-10.2); Carbon Dioxide 21 mmol/L (22.0-30.0); Chloride 105 mmol/L (98-107); Chol/HDL Ratio 4.7 (1-3.5); Cholesterol 201 mg/dl (140-200); Estimated Glomerular Filt Rate 131 ml/min (>60); GFR (African American) 158 ML/MIN (>60); Globulin 2.6 g/dL (1.3-3.2); Glucose 85 mg/dl (74-100); HDL Cholesterol 43 mg/dl (40-60); Potassium 4.3 mmoL/L (3.5-5.1); Sodium 138 mmol/L (136-145); Total Protein,Serum 6.9 g/dl (6.3-8.2); Triglycerides 132 mg/dl (30-150); VLDL Cholesterol 26 mg/dL (0-40)
[2023-09-22 13:11] LABS: Direct LDL Cholesterol 120.23 mg/dL (100-129)
[2023-09-22 13:14] LABS: 25-OH Vitamin D, Total 27.9 ng/mL (30-100)
[2023-09-22 13:17] LABS: Free Thyroxine Index 2.7 ug/dL (5.93-13.13); T4 (Thyroxine) 8.5 ug/dl (5.53-11.0); Triiodothryronine (T3) Uptake 32 % (23.5-40.5)
[2023-09-22 13:31] LABS: Thyroid Stimulating Hormone 0.42 uIU/mL (0.465-4.68)
[2023-09-22 13:49] LABS: Vitamin B12 667 pg/mL (239-931)
== END ==
PROVIDERS: PCP Nurse Practitioner Family; Visit Provider Orthopaedic Surgery
DX: M25.562 Pain in left knee (principal); I10 Essential (primary) hypertension; R53.81 Other malaise; E55.9 Vitamin D deficiency, unspecified; Z79.899 Other long term (current) drug therapy
CPT/HCPCS: 36415; 73721; 80053; 80061; 82306; 82607; 84436; 84443; 84479; 85025